=== PATIENT | male | born 1955 | race Caucasian/White ===

== ENCOUNTER 2023-06-20 16:17 | Inpatient (IN) | payer MEDICARE, OTHER, SELFPAY ==
--- NOTE | ~2023-06-20 | XR_ITS ---
EXAMINATION: Right knee and right foot x-rays CLINICAL INFORMATION: Right knee swelling and pain. Right toe infection. COMPARISON: None. TECHNIQUE: 4 views of the right knee. 2 views of the right foot FINDINGS: Right knee: There is normal. No fracture or dislocation. There is mild joint space narrowing at the femoral tibial joints. There are small osteophytes at the patellofemoral joint. There is a small joint effusion. There is atherosclerotic disease. Right foot: There are contractures of the toes. Bone alignment is otherwise normal. No fracture, dislocation or x-ray evidence of osteomyelitis. No abnormal air collection or soft tissue foreign body. There may be soft tissue swelling over the MTP joints. Soft tissue arterial calcification. XR/XR knee RT 3V IMPRESSION: Right knee: Degenerative changes. Atherosclerotic disease. Right foot: No x-ray evidence of osteomyelitis.
--- NOTE | ~2023-06-20 | CT_ITS ---
EXAMINATION: CT FOOT WITH CONTRAST, RIGHT CLINICAL INFORMATION: Question osteomyelitis. COMPARISON: Radiograph dated 06/20/2023 TECHNIQUE: Multidetector volumetric imaging was obtained through the right foot following intravenous administration of 85 mL Omnipaque 350. Multiplanar reformatted images in coronal and sagittal orientations were submitted. This CT examination was performed using dose optimization techniques as appropriate, variously including the following: *Automated exposure control *Adjustment of mA and/or kV according to patient size (this includes techniques or standardized protocols for targeted exams where dose is matched to indication/reason for exam; i.e. extremities or head) *Use of iterative reconstruction technique DLP: 187 mGy-cm FINDINGS: Soft tissue swelling is noted at the foot diffusely with generalized subcutaneous edema, most pronounced at the dorsal aspect of the midfoot and forefoot. No discrete peripherally enhancing fluid collections are identified to indicate abscess. No skin wounds are identified. No sites of focal erosion are osteopenia are identified to indicate a region of potential osteomyelitis. No fracture or malalignment. Mild talocrural osteoarthritis with small marginal osteophytes and areas of articular sclerosis. Midfoot joints are unremarkable. Minimal osteophyte is in the TMT joints. Calcific atherosclerosis is present in the arteries of the ankle and foot. There is fatty atrophy of the intrinsic foot musculature. No acute tendon abnormalities. CT/CT foot RT w IV con IMPRESSION: 1. Generalized soft tissue swelling and subcutaneous edema at the foot, most pronounced at the dorsal aspect of the midfoot and forefoot. No CT findings of osteomyelitis. No abscess. 2. Mild talocrural osteoarthritis. 3. Fatty atrophy of the intrinsic foot musculature.
--- NOTE | ~2023-06-20 | XR_ITS ---
EXAMINATION: Right knee and right foot x-rays CLINICAL INFORMATION: Right knee swelling and pain. Right toe infection. COMPARISON: None. TECHNIQUE: 4 views of the right knee. 2 views of the right foot FINDINGS: Right knee: There is normal. No fracture or dislocation. There is mild joint space narrowing at the femoral tibial joints. There are small osteophytes at the patellofemoral joint. There is a small joint effusion. There is atherosclerotic disease. Right foot: There are contractures of the toes. Bone alignment is otherwise normal. No fracture, dislocation or x-ray evidence of osteomyelitis. No abnormal air collection or soft tissue foreign body. There may be soft tissue swelling over the MTP joints. Soft tissue arterial calcification. XR/XR foot RT 2V IMPRESSION: Right knee: Degenerative changes. Atherosclerotic disease. Right foot: No x-ray evidence of osteomyelitis.
--- NOTE | ~2023-06-20 | US_ITS ---
EXAMINATION: Ultrasound arterial duplex lower extremity right CLINICAL INFORMATION: Nonhealing necrotic toe ulcer COMPARISON: None. TECHNIQUE: Doppler color and grayscale evaluation of the arteries of the right lower extremity with waveform spectral analysis FINDINGS: There is evidence of atherosclerotic disease and vessel wall calcification. Right common femoral artery peak systolic velocity 118 cm/s with flow reversal. Superficial femoral artery peak systolic velocities 100, 101 and 104 cm/s with diastolic flow reversal. Popliteal artery peak systolic velocity 81 cm/s with diastolic flow reversal. Posterior tibial artery peak systolic velocity 51 cm/s with diastolic flow reversal. US/US arterial duplex LE RT IMPRESSION: Mild atherosclerotic disease. No significant stenosis.
--- NOTE | ~2023-06-20 | CT_ITS ---
EXAMINATION: CT KNEE WITHOUT CONTRAST, RIGHT CLINICAL INFORMATION: Right knee pain. Evaluate for quadriceps tendon tear. COMPARISON: Right knee radiographs dated 06/20/2023. TECHNIQUE: Contiguous axial CT images of the right knee were obtained without contrast. Multiplanar reformats were provided and reviewed. This CT examination was performed using dose optimization techniques as appropriate, variously including the following: *Automated exposure control *Adjustment of mA and/or kV according to patient size (this includes techniques or standardized protocols for targeted exams where dose is matched to indication/reason for exam; i.e. extremities or head) *Use of iterative reconstruction technique DLP: 157 mGy-cm FINDINGS: No acute fracture or dislocation. Severe lateral as well as moderate to severe medial compartment joint space narrowing with subchondral sclerosis. Tricompartmental marginal osteophytes. No concerning lytic or blastic osseous lesion. No evidence of avascular necrosis. Small joint effusion and small Ramos's cyst. Prominent circumferential subcutaneous edema. No extra-articular organized fluid collection. No soft tissue mass. Atherosclerotic calcifications. Normal patellofemoral alignment. The quadriceps and patellar tendons are grossly intact, however, evaluation is limited on CT examination. The remaining visualized flexor and extensor tendons are intact. CT/CT knee RT wo IV con IMPRESSION: 1. No acute fracture or dislocation. 2. Tricompartmental osteoarthritis, most severe within the lateral compartment. 3. Small joint effusion and small Ramos's cyst. Prominent circumferential subcutaneous edema. 4. Grossly intact quadriceps and patellar tendons with normal patellofemoral alignment.
[2023-06-20 16:37] VITALS: BP 90/46; PULSE 80; RESP 18; TEMP 36.1; O2SAT 96; BMI 34.9
--- NOTE | 2023-06-20 16:37 | ED.SKABFB ---
HPI - Skin/Abscess/Foreign Bdy General Chief complaint: Wound/Laceration Stated complaint: rt foot toe infection/pcp sent pt to er Time Seen by Provider: 06/20/23 16:50 History of Present Illness HPI narrative: 68 y/o M patient; PMH T2DM, atrial fibrillation on Eliquis, CHF on Lasix, CAD; presents from PCP office with concern for right 5th toe infection. The patient states his symptoms started when he accidentally kicked a chair in the middle of the night while attempting to walk to the bathroom. He cut between his 4th and 5th digit on the right foot. The patient has been on oral antibiotics (patient states Amoxicillin and Bactrim) for the last 5 days. Despite the antibiotics he reports increased pain, redness, and swelling to the area. He denies: fever or chills, chest pain, SOB, cough/congestion, nausea/vomiting, abdominal pain. Related Data Home Medications Medication Instructions Recorded Confirmed acetaminophen 500 mg tablet 1,000 mg PO TID PRN Pain (Scale 06/20/23 06/20/23 Score 1-3) amoxicillin 875 mg-potassium 1 tab PO BID 06/20/23 06/20/23 clavulanate 125 mg tablet apixaban 5 mg tablet (Eliquis) 5 mg PO BID 06/20/23 06/20/23 aspirin 81 mg tablet,delayed 81 mg PO DAILY 06/20/23 06/20/23 release dapagliflozin propanediol 5 mg 5 mg PO DAILY 06/20/23 06/20/23 tablet (Farxiga) furosemide 40 mg tablet 40 mg PO DAILY 06/20/23 06/20/23 ibuprofen 600 mg tablet 600 mg PO Q6H PRN Pain (Scale 06/20/23 06/20/23 Score 1-3) insulin degludec 200 unit/mL (3 150 unit subcut DAILY 06/20/23 06/20/23 mL) subcutaneous pen (Tresiba FlexTouch U-200 insulin) losartan 50 mg tablet 50 mg PO DAILY 06/20/23 06/20/23 metoprolol succinate 50 mg 50 mg PO DAILY 06/20/23 06/20/23 tablet,extended release 24 hr rosuvastatin 10 mg tablet 10 mg PO DAILY 06/20/23 06/20/23 sulfamethoxazole 800 1 tab PO BID 06/20/23 06/20/23 mg-trimethoprim 160 mg tablet Allergies Allergy/AdvReac Type Severity Reaction Status Date / Time No Known Allergies Allergy Verified 06/20/23 16:43 Review of Systems Review of Systems: Yes all other systems are reviewed and are negative COUNT INCLUDES THE [facility] Past Medical History Attestation statement: The following information was validated with the patient. Social History Social History Smoked in Last 30 Days: No Use of substances other than those prescribed or required for medical reasons: No Advance Directives: No Advance Directives Information Provided: Yes Physical Exam Vital Signs: Vital Signs: Last Vital Signs Temp 97 F 06/20/23 16:37 Pulse 72 06/20/23 17:15 Resp 16 06/20/23 17:15 BP 121/69 06/20/23 17:15 Pulse Ox 99 06/20/23 17:15 O2 Del Method Room Air 06/20/23 17:15 BMI result Body Mass Index 34.9 Patient is afebrile, with low normal blood pressure, without tachycardia. Const: General: comfortable and no acute distress HEENT: Head: Yes atraumatic Eyes: Pupils: Equal, round and reactive pupils present EOM: EOMs intact bilaterally Neck: Neck: Yes full ROM, Yes supple and No tender Chest: Chest palpation & inspection: normal inspection of the chest and normal palpation of entire chest wall Resp: Effort & Inspection: normal respiratory effort, able to speak in complete sentences and no respiratory distress Auscultation: clear to auscultation bilaterally Cardio: Rate: regular rate Rhythm: regular rhythm Peripheral pulses: Peripheral pulses 2+ throughout GI: Palpation (GI): Soft to palpation, not firm, nontender, no guarding and not rigid Auscultation: normal bowel sounds Skin: Other: Right 4th and 5th digit surrounding erythema. Evidence of necrosis to 5th digit medial aspect. 2+ lower extremity right sided pitting edema. Neuro: Cranial nerves: Yes Equal, round and reactive pupils present Course Course Course Narrative: 7021-This is a rapid medical exam. Deferred additional HPI, ROS, PE to primary provider. 68 yo with history of DM, afib on eliquis, CHF on lasix, on baby ASA 81mg here with complaints of right 5th toe infection despite being on oral antibiotics x 5 days. Initially had an injury causing an abrasion to the 5th toe about 3 weeks ago. Now increasing pain, swelling and redness. No fevers/chills. Will need labs, x-ray VSS At this time infection suspected. Antibiotics ordered. Fluids ordered. Reevaluation(s) Reevaluation #1: Reviewed triage work up. Agree with plan for laboratory studies, XR imaging, IVF, and antibiotics (Zosyn and Vancomycin). Patient will require admission for IV antibiotics. XRs without evidence of free air. Plan: Admit to hospitalist for right 5th digit infection with cellulitis Condition: stable Medications Administered Generic Name Dose Route Start Last Admin Trade Name Freq PRN Reason Stop Dose Admin Vancomycin HCl 2,000 mg in 500 mls @ 250 mls/hr 06/20/23 18:00 06/20/23 18:31 Vancomycin/Ns IV 06/20/23 19:59 250 mls/hr ONCE ONE Administration Discontinued Medications Generic Name Dose Route Start Last Admin Trade Name Freq PRN Reason Stop Dose Admin Piperacillin Sod/Tazobactam 50 mls @ 100 mls/hr 06/20/23 16:45 06/20/23 18:29 Sod 3.375 gm/ Sodium Chloride IV 06/20/23 17:14 Infused ONCE ONE Infusion Sodium Chloride 1,000 mls @ 999 mls/hr 06/20/23 16:46 06/20/23 18:29 Ns IV 06/20/23 17:46 Infused .Q1H1M STA Infusion Medical Decision Making Lab Data 06/20/23 17:12 06/20/23 17:12 Labs: Lab Results 06/20/23 Range/Units 17:12 WBC 13.8 H (4.8-10.8) X10*3/uL RBC 4.44 L (4.60-5.80) X10*6/uL Hgb 11.0 L (14.0-18.0) g/dl Hct 35.1 L (42.0-52.0) % MCV 79.1 L (80.0-98.0) fL MCH 24.8 L (27.0-33.0) pg MCHC 31.3 (31.0-36.0) g/dl RDW 17.9 H (11.0-16.0) % Plt Count 337 (160-400) X10*3/uL MPV 8.9 L (9.4-12.4) fL Immature Gran % (Auto) 0.7 H (0.0-0.4) % Neut % (Auto) 84.2 H (45-73) % Lymph % (Auto) 10.7 L (20-40) % [place] % (Auto) 3.9 (2-11) % Eos % (Auto) 0.4 (0-4) % Baso % (Auto) 0.1 (0-2) % Lymph # (Auto) 1.5 (1.2-4.9) X10*3/uL [place] # (Auto) 0.5 (0.1-1.2) X10*3/uL Eos # (Auto) 0.1 (0.0-0.4) X10*3/uL Baso # (Auto) 0.0 (0.0-0.2) X10*3/uL Abs Immat Gran (auto) 0.09 H (0.00-0.03) X10*3/uL Absolute Neuts (auto) 11.6 H (2.0-8.3) x10*3/uL Absolute Nucleated RBC 0.000 (0.0-0.012) X10*3/uL Nucleated RBC % (auto) 0.0 (0.0-0.2) /100WBC ESR 85 H (0-15) MM/HR Sodium 130 L (135-145) mmol/L Potassium 5.1 (3.3-5.1) mmol/L Chloride 99 (96-108) mmol/L Carbon Dioxide 21 L (22-29) mmol/L Anion Gap 15 (12-20) BUN 44 H (9-16) mg/dL Creatinine 1.98 H (0.5-1.4) mg/dL Estim Creat Clear Calc 45.0 Estimated GFR 34 Random Glucose 203 H (60-115) mg/dL Lactic Acid 1.3 (0.5-2.0) mmol/L Calcium 8.5 (8.4-10.2) mg/dL Total Bilirubin 0.5 (0.0-1.0) mg/dL Direct Bilirubin 0.3 (0.0-0.5) mg/dL AST 15 (5-37) U/L ALT 12 (0-40) U/L Alkaline Phosphatase 78 (39-117) U/L C-Reactive Protein 12.38 H (< or = 0.50) mg/dL Total Protein 7.4 (6.5-8.0) g/dL Albumin 2.7 L (3.5-5.0) g/dL Radiology Impression Discussion of test interpretation with radiology: I have reviewed the radiologist's reading. Radiologist Impression: EXAMINATION: Ultrasound arterial duplex lower extremity right CLINICAL INFORMATION: Nonhealing necrotic toe ulcer COMPARISON: None. TECHNIQUE: Doppler color and grayscale evaluation of the arteries of the right lower extremity with waveform spectral analysis FINDINGS: There is evidence of atherosclerotic disease and vessel wall calcification. Right common femoral artery peak systolic velocity 118 cm/s with flow reversal. Superficial femoral artery peak systolic velocities 100, 101 and 104 cm/s with diastolic flow reversal. Popliteal artery peak systolic velocity 81 cm/s with diastolic flow reversal. Posterior tibial artery peak systolic velocity 51 cm/s with diastolic flow reversal. US/US arterial duplex LE RT IMPRESSION: Mild atherosclerotic disease. No significant stenosis. EXAMINATION: Right knee and right foot x-rays CLINICAL INFORMATION: Right knee swelling and pain. Right toe infection. COMPARISON: None. TECHNIQUE: 4 views of the right knee. 2 views of the right foot FINDINGS: Right knee: There is normal. No fracture or dislocation. There is mild joint space narrowing at the femoral tibial joints. There are small osteophytes at the patellofemoral joint. There is a small joint effusion. There is atherosclerotic disease. Right foot: There are contractures of the toes. Bone alignment is otherwise normal. No fracture, dislocation or x-ray evidence of osteomyelitis. No abnormal air collection or soft tissue foreign body. There may be soft tissue swelling over the MTP joints. Soft tissue arterial calcification. XR/XR foot RT 2V IMPRESSION: Right knee: Degenerative changes. Atherosclerotic disease. Right foot: No x-ray evidence of osteomyelitis. Discharge Plan Discharge Clinical Impression: Cellulitis of leg, right Patient Disposition: Admitted As Inpatient
[2023-06-20 17:15] VITALS: BP 121/69; PULSE 72; RESP 16; O2SAT 99
[2023-06-20 17:26] LABS: MANUAL DIFF FLAG NO
[2023-06-20] MEDS: 0.9 % Sodium Chloride 1,000 ML 999 ML IV (17:27)
[2023-06-20] MEDS: Piperacillin Sodium/Tazobactam 3.375 GM in 0.9 % Sodium Chloride 50 ML IV (17:27)
--- NOTE | 2023-06-20 17:27 | PC.NURSE ---
CHUTE DOWN TO LAB IS BROKEN, LABS TRANSPORTED ON FOOT BY THIS RN, RESULTING IN DELAY IN HANGING ABX.
[2023-06-20 17:30] LABS: Basophils Percent Auto 0.1 % (0-2); Eosinophils Absolute Auto 0.1 X10*3/uL (0.0-0.4); Eosinophils Percent Auto 0.4 % (0-4); Hematocrit 35.1 % (42.0-52.0); Imm Gran Abs Auto 0.09 X10*3/uL (0.00-0.03); Imm Gran Pct Auto 0.7 % (0.0-0.4); Lymphocytes Absolute Auto 1.5 X10*3/uL (1.2-4.9); Lymphocytes Percent Auto 10.7 % (20-40); Mean Corpuscular HGB Conc 31.3 g/dl (31.0-36.0); Mean Corpuscular Hemoglobin 24.8 pg (27.0-33.0); Mean Corpuscular Volume 79.1 fL (80.0-98.0); Mean Platelet Volume 8.9 fL (9.4-12.4); Monocytes Absolute Auto 0.5 X10*3/uL (0.1-1.2); Monocytes Percent Auto 3.9 % (2-11); Neutrophils Absolute Auto 11.6 x10*3/uL (2.0-8.3); Neutrophils Percent Auto 84.2 % (45-73); Platelet Count 337 X10*3/uL (160-400); Red Blood Count 4.44 X10*6/uL (4.60-5.80); Red Cell Distribution Width 17.9 % (11.0-16.0); White Blood Count 13.8 X10*3/uL (4.8-10.8)
[2023-06-20 17:40] LABS: Lactic Acid 1.3 mmol/L (0.5-2.0)
[2023-06-20 17:46] LABS: Alanine Aminotransferase 12 U/L (0-40); Albumin Level 2.7 g/dL (3.5-5.0); Alkaline Phosphatase 78 U/L (39-117); Anion Gap 15 (12-20); Aspartate Amino Transferase 15 U/L (5-37); Bilirubin Direct 0.3 mg/dL (0.0-0.5); Bilirubin Total 0.5 mg/dL (0.0-1.0); Blood Urea Nitrogen 44 mg/dL (9-16); C Reactive Protein 12.38 mg/dL (< or = 0.50); Calcium 8.5 mg/dL (8.4-10.2); Carbon Dioxide 21 mmol/L (22-29); Chloride 99 mmol/L (96-108); Estimated Glomerular Filt Rate 34; Glucose Random 203 mg/dL (60-115); Potassium 5.1 mmol/L (3.3-5.1); Sodium 130 mmol/L (135-145); Total Protein 7.4 g/dL (6.5-8.0)
--- NOTE | 2023-06-20 18:10 | PHA.MEDREC ---
Pharmacy Consult ? Medication Reconciliation Pharmacy has completed the medication reconciliation. Patient's had list of medications. Patient reports no longer taking Multag due gi upset, Trulicity or Mounajro. Patient confirm Tresiba dose is 150 units a day and reports sometimes he takes an extra dose if his BS are high. Beth Roman, Pharm
[2023-06-20 18:11] LABS: Erythrocyte Sedimentation Rate 85 MM/HR (0-15)
[2023-06-20] MEDS: vancomycin/NS 2,000 MG/500 ML PLAST..BAG 250 MG IV (18:31)
--- NOTE | 2023-06-20 19:29 | PC.NURSE ---
Assumed care of pt. Pt lying on stretcher, PA at bedside. Abx running in L AC IV, pt endorsing mild pain, PA sts will order meds. Plan to admit pt.
[2023-06-20 19:45] VITALS: BP 153/97; PULSE 99; RESP 17; TEMP 36.8; O2SAT 100
--- NOTE | 2023-06-20 20:44 | P.HPHOSP_ITS ---
History of Present Illness Date of Service: 06/20/23 Attending physician on admission: Je Craven Chief Complaint: toe infection 59-year-old male with history of uncontrolled insulin-dependent type 2 diabetes, hyperlipidemia, coronary artery disease s/p PCI 2017, paroxysmal atrial fibrillation s/p cardioversion and cardiac ablation anticoagulated with Eliquis, hypertension, obstructive sleep apnea, HFpEF presented to the ED earlier today the recommendation of his PCP for evaluation of a nonhealing ulcer of the right 5th toe. The patient reports that while ambulating about 17 days ago, he accidentally kicked the leg of a wood chair with the right small toe and sustained a laceration that did not require repair. However he did develop surrounding erythema and edema and he was prescribed Bactrim and Augmentin. However despite oral antibiotics, continue with ascending erythema, swelling, and pain. The toe took on a foul odor with black discoloration. He was seen again by his PCP today who recommended he come to the ED for further evaluation. His has been providing wound care and reports purulent drainage from the wound. He also states he has been having difficulty bearing weight on the right lower extremity. On arrival, patient iwth soft BP 90/46 with improvement to 153/97 following 1L IVF. Pt did develop mild tachycardia in the 90s. Vitals otherwise stable. There is a leukocytosis of 13.8. Microcytic anemia with H/H 11.0/35.1%, MCV 79.1. Creat 1.98, baseline 0.90 ([facility]). BUN 44. Sodium 130, potassium 5.1, electrolytes otherwise normal. CRP 12.38, ESR 85. X-ray of the right knee shows degenerative changes but no acute osseous abnormality. X-ray of the foot negative for any acute osteomyelitis. Arterial Doppler right lower extremity shows mild atherosclerotic disease but no significant stenosis. In the ED, has been treated with empiric Zosyn and vancomycin and has been given 1 L IV NS. Review of Systems 2 Review of Systems: General: No fevers, malaise, unintentional weight loss HEENT: No blurred vision, diplopia. No sore throat, nasal congestion, rhinorrhea, sinus pain, ear pain Cardiovascular: No chest pain, palpitations Respiratory: No shortness of breath, wheezing, cough GI: No abdominal pain, nausea, vomiting, diarrhea, constipation, melena, hematochezia : No dysuria, hematuria, increased urinary frequency, decreased urinary output MSK: No myalgia, back pain. +R knee pain Neuro: No headaches, weakness, paresthesias Skin: +R toe wound, +erythema/swelling RLE [facility] Medical History (Updated 06/20/23 @ 21:16 by MICK Appiah) (HFpEF) heart failure with preserved ejection fraction Obstructive sleep apnea Hyperlipidemia Type 2 diabetes mellitus Coronary artery disease Atrial fibrillation Hypertension Surgical History (Updated 06/20/23 @ 21:04 by MICK Appiah) S/P percutaneous transluminal coronary angioplasty Social History Smoked in Last 30 Days: No Use of substances other than those prescribed or required for medical reasons: No Advance Directives: No Advance Directives Information Provided: Yes Meds Allergies Allergy/AdvReac Type Severity Reaction Status Date / Time No Known Allergies Allergy Verified 06/20/23 16:43 Active Medications: Current Medications Acetaminophen (Acetaminophen 325 Mg Tablet) 650 mg PO Q6H PRN PRN Reason: Pain, Mild (Pain Scale 1-3) Apixaban (Apixaban 5 Mg Tablet) 5 mg PO BID AP Aspirin (Aspirin Enteric Coated 81 Mg Tablet.Dr) 81 mg PO DAILY AP Dextrose (Dextrose 50 % 25 Gm/50 Ml Syringe) 25 gm IVPUSH Q15M PRN; Protocol PRN Reason: per Hypoglycemia Standing Ord. Furosemide (Furosemide 40 Mg Tablet) 40 mg PO DAILY AP; Protocol Glucose (Glucose Gel 15 Gm Gel..Gram.) 15 gm PO Q15M PRN; Protocol PRN Reason: per Hypoglycemia Standing Ord. Sodium Chloride (Ns) 1,000 mls @ 100 mls/hr IVCONT .Q10H AP Piperacillin Sod/Tazobactam (Sod 3.375 gm/ Sodium Chloride) 50 mls @ 100 mls/hr IV Q6H AP Insulin Human Lispro (Insulin Lispro 100 Unit/Ml 3 Ml Vial) 0 unit SUBCUT QIDACHS AP; Protocol Metoprolol Succinate (Metoprolol Succinate Er 50 Mg Tab.Er.24h) 50 mg PO DAILY AP; Protocol Morphine Sulfate (Morphine Sulfate 4 Mg/Ml Cartridge) 2 mg IVPUSH Q4H PRN; Protocol PRN Reason: Pain, Severe (Pain Scale 7-10) Non-Formulary Medication (Insulin Degludec [Tresiba Flextouch U-200]) 105 unit SUBCUT DAILY [facility] Non-Formulary Medication (Rosuvastatin) 10 mg PO DAILY [facility] Ondansetron HCl (Ondansetron Hcl 4 Mg/2 Ml Vial) 4 mg IVPUSH Q8H PRN PRN Reason: Nausea and Vomiting Oxycodone HCl (Oxycodone Hcl Immed Release 5 Mg Tablet) 5 mg PO Q6H PRN PRN Reason: Pain, Moderate(Pain Scale 4-6) Pharmacy Consult (Consult Rx Vancomycin Dosing) 1 each MISCELLANE DAILY PRN PRN Reason: Consult order Senna (Sennosides 8.6 Mg Tablet) 17.2 mg PO BEDTIME PRN PRN Reason: Constipation Sodium Chloride (0.9 % Sodium Chloride Flush 3 Ml Syringe) 3 ml IVFLUSH QSHIFT [facility] Home Medications Medication Instructions Recorded Confirmed Last Taken Type acetaminophen 500 mg tablet 1,000 mg PO TID PRN Pain (Scale 06/20/23 06/20/23 Unknown History Score 1-3) amoxicillin 875 mg-potassium 1 tab PO BID 06/20/23 06/20/23 06/20/23 History clavulanate 125 mg tablet apixaban 5 mg tablet (Eliquis) 5 mg PO BID 06/20/23 06/20/23 06/20/23 History aspirin 81 mg tablet,delayed 81 mg PO DAILY 06/20/23 06/20/23 06/20/23 History release dapagliflozin propanediol 5 mg 5 mg PO DAILY 06/20/23 06/20/23 06/20/23 History tablet (Farxiga) furosemide 40 mg tablet 40 mg PO DAILY 06/20/23 06/20/23 06/20/23 History ibuprofen 600 mg tablet 600 mg PO Q6H PRN Pain (Scale 06/20/23 06/20/23 06/20/23 History Score 1-3) insulin degludec 200 unit/mL (3 150 unit subcut DAILY 06/20/23 06/20/23 06/20/23 History mL) subcutaneous pen (Tresiba FlexTouch U-200 insulin) losartan 50 mg tablet 50 mg PO DAILY 06/20/23 06/20/23 06/20/23 History metoprolol succinate 50 mg 50 mg PO DAILY 06/20/23 06/20/23 06/20/23 History tablet,extended release 24 hr rosuvastatin 10 mg tablet 10 mg PO DAILY 06/20/23 06/20/23 06/20/23 History sulfamethoxazole 800 1 tab PO BID 06/20/23 06/20/23 06/20/23 History mg-trimethoprim 160 mg tablet Physical Exam 2 Vital Signs and Narrative: Vital Signs: Last Vital Signs Temp 98.3 F 06/20/23 19:45 Pulse 99 06/20/23 19:45 Resp 17 06/20/23 19:45 BP 153/97 H 06/20/23 19:45 Pulse Ox 100 06/20/23 19:45 O2 Del Method Room Air 06/20/23 19:45 BMI result Body Mass Index 34.9 Constitutional - Awake and Alert, No apparent distress Eyes - PERRLA, EOMI Cardiovascular - S1S2, RRR Respiratory - Normal lung expansion, Normal respiratory effort, No respiratory distress, CTA bilaterally Gastrointestinal - NT / ND; +BS; No rebound or guarding Extremities - no calf tenderness bilaterally, no swelling Skin - Warm/Dry. Shallow ulceration dorsal aspect R 5th toe with foul smelling eschar with significant surrounding erthema and patchy erythema extending to the knee with associated 3+ pitting edema Neurological - Alert & oriented x3 Psychological - Appropriate affect Results Labs 06/20/23 17:12 06/20/23 17:12 Labs: Laboratory Results - last 24 hr 06/20/23 17:12 MCV 79.1 L MCH 24.8 L MCHC 31.3 RDW 17.9 H Plt Count 337 MPV 8.9 L Immature Gran % (Auto) 0.7 H Neut % (Auto) 84.2 H Lymph % (Auto) 10.7 L [place] % (Auto) 3.9 Eos % (Auto) 0.4 Baso % (Auto) 0.1 Lymph # (Auto) 1.5 [place] # (Auto) 0.5 Eos # (Auto) 0.1 Baso # (Auto) 0.0 Abs Immat Gran (auto) 0.09 H Absolute Neuts (auto) 11.6 H Absolute Nucleated RBC 0.000 Nucleated RBC % (auto) 0.0 ESR 85 H Anion Gap 15 Estim Creat Clear Calc 45.0 Estimated GFR 34 Random Glucose 203 H Lactic Acid 1.3 Calcium 8.5 Total Bilirubin 0.5 Direct Bilirubin 0.3 AST 15 ALT 12 Alkaline Phosphatase 78 C-Reactive Protein 12.38 H Total Protein 7.4 Albumin 2.7 L Imaging Radiologist's Impressions: Impressions Duplex Scan Lower Extremity Artery 06/20/23 17:55 IMPRESSION: Mild atherosclerotic disease. No significant stenosis. Foot X-Ray 06/20/23 18:30 IMPRESSION: Right knee: Degenerative changes. Atherosclerotic disease. Right foot: No x-ray evidence of osteomyelitis. Knee X-Ray 06/20/23 18:30 IMPRESSION: Right knee: Degenerative changes. Atherosclerotic disease. Right foot: No x-ray evidence of osteomyelitis. Assessment and Plan (1) Cellulitis of leg, right: Status: Acute (2) Severe sepsis: Status: Acute (3) Acute kidney injury: Status: Acute (4) Hyponatremia: Status: Acute Plan 59-year-old male with history of uncontrolled insulin-dependent type 2 diabetes, hyperlipidemia, coronary artery disease s/p PCI 2018, paroxysmal atrial fibrillation s/p cardioversion and cardiac ablation anticoagulated with Eliquis, hypertension, obstructive sleep apnea, HFpEF admitted for further management of acute cellulitis RLE with severe sepsis #Acute cellulitis RLE with severe sepsis -leukocytosis 13.8, tachycardic. No lactic acidosis. GINA. No hypotension -in uncontrolled type 2 diabetic with hemoglobin A1c pending -IV vancomycin and Zosyn -x-ray negative for osteomyelitis. ESR 85, CRP 12. MRI right foot w/wo contrast ordered -Pain management prn -general surgery consult -wound care consult -follow CBC, cultures # acute kidney injury -likely related to above -urine studies pending -creatinine 1.8, baseline 0.90 ([facility]) -received 1 L IV NS in ED, continue IV NS at 100 mL/hr -avoid nephrotoxins -strict I&O -follow renal function and electrolyte levels #Acute hyponatremia -possibly r/t bactrim use -IV NS -follow lytes #Acute microcytic anemia -H/H 11.0/35.1%, baseline 13.8/44.1% -denies bleeding, likely in setting of acute infection -iron studies and stool occult blood pending -continue eliquis for now # uncontrolled insulin-dependent type 2 diabetes with hyperglycemia -hemoglobin A1c pending -POC glucose, diabetic diet -dose adjusted basal insulin -Humalog on sliding scale -hold oral antihyperglycemics # hypertension -blood pressure reasonably controlled -hold losartan in setting of GINA. Continue metoprolol, furosemide # CAD/HLD -continue Eliquis, statin, beta-gabrielle # paroxysmal atrial fibrillation-rate controlled on admission -Eliquis for anticoagulation -metoprolol for rate control # heart failure preserved ejection fraction -no acute exacerbation -continue oral diuretics DVT prophylaxis-Eliquis Full code Patient requires inpatient stay at least 2 midnights for management of acute cellulitis right lower extremity and uncontrolled diabetic with concern for osteomyelitis and possible necrosis requiring IV antibiotics, expert consultation, and may require long-term IV antibiotics pending additional imaging studies. Quality Stroke Does the patient have a stroke diagnosis?: No VTE Prior VTE?: No VTE Risk Level:: Medical - moderate - high VTE Device Contraindication: Treatment Not Indicated VTE Drug Contraindication: N/A - Med Ordered
[2023-06-20 21:24] LABS: Iron 19 mcg/dL (45-160); Percent Iron Saturation 11 % (15-50); Total Iron Binding Capacity 168 mcg/dL (228-428); Unsaturated Iron Binding 149 ug/dL
[2023-06-20 21:35] LABS: Glucose, Whole Blood 77 mg/dL (60-115)
[2023-06-20 21:37] LABS: Ferritin 956 ng/mL (20-250)
[2023-06-20] MEDS: Acetaminophen 325 MG TABLET 975 MG PO (21:39)
[2023-06-20] MEDS: Morphine Sulfate 4 MG/ML CARTRIDGE 2 MG IVPUSH (21:40)
[2023-06-20] MEDS: Apixaban 5 MG TABLET PO (21:40)
[2023-06-20] MEDS: 0.9 % Sodium Chloride 1,000 ML 100 ML IVCONT (21:45)
--- NOTE | 2023-06-20 21:52 | PC.NURSE ---
pt reports 10/10 R knee pain. Pt medicated per JUL.
--- OUTSIDE RECORDS SUMMARY | 2023-06-20 23:18 | XMS_ITS | Continuity of Care Document ---
Author Name Unknown Organization [facility] ter Address [address] [place] [id number] Care Team Providers Care Phlebotomist Lab Assistant Name Role Phone Macario JAIMES, Chemo Lizarraga Primary Care Physician Encounter [facility] ACCT R [id number] Date(s): 12/30/21 - 12/31/[address] [address]- Discharge Disposition: A-D/C Home Attending Physician: Bashir Calles MD Admitting Physician: Bashir Calles MD Referring Physician: Bashir Calles MD Allergies, Adverse Reactions, Alerts Substance Reaction Severity Status Lactose Active Immunizations Given and Recorded Vaccine Date Status Refusal Reason pneumococcal 23-valent vaccine 05/02/18 Given Medications apixaban 5 mg oral tablet 1 tablet = 5 mg, By Mouth, 2 times a day, # 60 tablet, 11 Refills, Maintenance, 05/02/18 11:49:58 EST, Tablet Start Date: 05/02/18 Stop Date: 04/27/19 Status: Ordered aspirin 81 mg oral capsule 1 capsule = 81 mg, By Mouth, Every 4 hours, 0 Refills, Maintenance, 12/31/21 11:23:00 EDT, Partial fill upon patient request if the prescription is for a schedule II opioid drug. Start Date: 12/31/21 Status: Ordered dulaglutide 1.5 mg/0.5 mL subcutaneous solution 0.5 mL = 1.5 mg, Subcutaneous Injection, Every week, 0 Refills, Maintenance, 04/28/18 14:03:18 EST,Solution Start Date: 04/28/18 Status: Ordered furosemide 40 mg oral tablet 40 mg, 1, tablet, By Mouth, 2 times a day, # 30 tablet, Refills 0, Maintenance, 12/31/21 11:23:00 EDT, Partial fill upon patient request if the prescription is for a schedule II opioid drug. Start Date: 12/31/21 Status: Ordered losartan 50 mg oral tablet 50 mg, 1, tablet, By Mouth, Daily, # 30 tablet, Refills 0, Maintenance, 12/31/21 11:22:00 EDT, Partial fill upon patient request if the prescription is for a schedule II opioid drug. Start Date: 12/31/21 Status: Ordered nitroglycerin 0.4 mg sublingual tablet 1 tablet = 0.4 mg, Sublingual, Every 5 minutes, PRN for chest pain, # 25 tablet, 0 Refills, Maintenance, 05/02/18 15:25:29 EST, Tablet Start Date: 05/02/18 Stop Date: 06/01/18 Status: Ordered pantoprazole 40 mg oral delayed release tablet = 40 mg, By Mouth, Daily at bedtime, # 30 capsule, 0 Refills, Maintenance, 12/30/21 13:29:00 EDT, EC Tablet, 180, cm, 12/30/21 7:28:00 EDT, Height, 128, kg, 12/30/21 7:21:00 EDT, Dry Weight Start Date: 12/30/21 Status: Ordered rosuvastatin 10 mg oral capsule 1 capsule = 10 mg, By Mouth, Daily, # 30 capsule, 0 Refills, Maintenance, 12/31/21 11:23:00 EDT, Capsule, Partial fill upon patient request if the prescription is for a schedule II opioid drug. Start Date: 12/31/21 Status: Ordered Toprol XL 25 mg oral tablet, extended release 25 mg, 1, tablet, By Mouth, Daily, # 90 tablet, Refills 3, Tot. Refills 3, Maintenance, 12/30/21 13:34:00 EDT, Route to Pharmacy Electronically, [facility]/pharmacy #[id number], Partial fill upon patient request if the prescription is for a schedule II opioid drug... Start Date: 12/30/21 Status: Ordered Toradol Inj 15 mg, Injection, IV Push Slowly, 12/31/21 2:00:00 EDT, Stop date 12/31/21 2:00:00 EDT Start Date: 12/31/21 Stop Date: 12/31/21 Status: Completed Toradol Inj 15 mg, Injection, IV Push Slowly, 12/31/21 9:00:00 EDT, Stop date 12/31/21 9:00:00 EDT Start Date: 12/31/21 Stop Date: 12/31/21 Status: Completed Tresiba FlexTouch 200 units/mL subcutaneous solution = 200 units, Subcutaneous Injection, Daily, rotate injection sites, # 9 mL, 0 Refills, Maintenance,04/28/18 14:02:52 EST, Solution Start Date: 04/28/18 Status: Ordered Problem List Condition Effective Dates Status Health Status Inform ant CAD in [place] artery(Confirmed) Active Vital Signs Most recent to oldest [Reference Range]: 1 2 3 Height 180 cm (12/31/21 8:09 AM) 180 cm (12/31/21 2:43 AM) 180 cm (12/30/21 7:49 PM) Weight 128 kg (12/30/21 7:28 AM) 128 kg (12/30/21 7:21 AM) Oxygen Saturation [94-100 %] 97 % (12/31/21 8:09 AM) 100 % (12/31/21 2:43 AM) 100 % (12/30/21 7:49 PM) Pulse Rate [55-90 bpm] 79 bpm (12/31/21 8:09 AM) 81 bpm (12/31/21 2:43 AM) 75 bpm (12/30/21 7:49 PM) Blood Pressure [90-138/55-84 mm Hg] 129/83mm Hg (12/31/21 8:09 AM) 125/75mm Hg (12/31/21 2:43 AM) 111/96mm Hg (12/30/21 7:49 PM) Respiratory Rate [16-30 br/min] 18 br/min (12/31/21 8:53 AM) 18 br/min (12/31/21 8:09 AM) 18 br/min (12/31/21 3:34 AM) Temperature [96.8-100.4 DegF] 97.4 DegF (12/31/21 8:09 AM) 98 DegF (12/31/21 2:43 AM) 96.8 DegF (12/30/21 7:49 PM) Liters per Minute 2 L/min (12/30/21 7:49 PM) 2 L/min (12/30/21 3:30 PM) Mode of Delivery (Oxygen) Room air (12/31/21 8:09 AM) Room air (12/31/21 2:43 AM) Nasal cannula (12/30/21 7:49 PM) Blood pressure sites Arm, left (12/31/21 8:09 AM) Arm, right (12/31/21 2:43 AM) Arm, right (12/30/21 7:49 PM) Temperature Route Temporal (12/31/21 8:09 AM) Temporal (12/31/21 2:43 AM) Temporal (12/30/21 7:49 PM) Dry Weight 128 kg (12/30/21 7:21 AM) Social History Social History Type Response Smoking Status Former smoker, quit more than 30 days ago entered on: 04/28/18 Sex
[2023-06-20 23:44] VITALS: BP 132/58; PULSE 78; RESP 16; TEMP 36.8; O2SAT 99
[2023-06-21] MEDS: Piperacillin Sodium/Tazobactam 3.375 GM in 0.9 % Sodium Chloride 50 ML IV ×4 (00:20→20:12)
[2023-06-21] MEDS: oxyCODONE HCl Immed Release 5 MG TABLET PO ×2 (00:21→15:19)
[2023-06-21] MEDS: 0.9 % Sodium Chloride Flush 3 ML SYRINGE IVFLUSH ×3 (01:01→20:12)
[2023-06-21 01:04] VITALS: BP 154/67; PULSE 76; RESP 16; TEMP 36.3; O2SAT 96
[2023-06-21 01:05] VITALS: BMI 35.5
[2023-06-21] MEDS: Morphine Sulfate 4 MG/ML CARTRIDGE 2 MG IVPUSH (01:42)
[2023-06-21 03:31] VITALS: BP 130/69; PULSE 81; RESP 18; TEMP 36.1; O2SAT 99
[2023-06-21] MEDS: HYDROmorphone HCl 1 MG/ML SYRINGE IVPUSH ×4 (03:39→20:02)
[2023-06-21 06:12] LABS: MANUAL DIFF FLAG NO
[2023-06-21 06:33] LABS: Basophils Percent Auto 0.1 % (0-2); Eosinophils Absolute Auto 0.1 X10*3/uL (0.0-0.4); Eosinophils Percent Auto 0.6 % (0-4); Hematocrit 31.3 % (42.0-52.0); Hemoglobin 9.8 g/dl (14.0-18.0); Imm Gran Abs Auto 0.04 X10*3/uL (0.00-0.03); Imm Gran Pct Auto 0.4 % (0.0-0.4); Lymphocytes Absolute Auto 1.5 X10*3/uL (1.2-4.9); Lymphocytes Percent Auto 13.1 % (20-40); Mean Corpuscular HGB Conc 31.3 g/dl (31.0-36.0); Mean Corpuscular Hemoglobin 25.7 pg (27.0-33.0); Mean Corpuscular Volume 82.2 fL (80.0-98.0); Monocytes Absolute Auto 0.5 X10*3/uL (0.1-1.2); Monocytes Percent Auto 4.2 % (2-11); Neutrophils Absolute Auto 9.2 x10*3/uL (2.0-8.3); Neutrophils Percent Auto 81.6 % (45-73); Platelet Count 306 X10*3/uL (160-400); Red Blood Count 3.81 X10*6/uL (4.60-5.80); Red Cell Distribution Width 17.9 % (11.0-16.0); White Blood Count 11.3 X10*3/uL (4.8-10.8)
[2023-06-21 06:34] LABS: Anion Gap 12 (12-20); Blood Urea Nitrogen 29 mg/dL (9-16); Calcium 8.4 mg/dL (8.4-10.2); Carbon Dioxide 23 mmol/L (22-29); Chloride 105 mmol/L (96-108); Creatinine Clr Calc Pharmacy 70.4; Estimated Glomerular Filt Rate 56; Glucose Random 63 mg/dL (60-115); Potassium 4.9 mmol/L (3.3-5.1); Sodium 135 mmol/L (135-145)
--- NOTE | 2023-06-21 07:11 | HO.SKINPHOTO ---
Location: RT 5th TOE Category: Stage: Length: Width: Depth: cm Location: Category: Stage: Length: Width: Depth: cm Location: Category: Stage: Length: Width: Depth: cm Location: Category: Stage: Length: Width: Depth: cm Location: Category: Stage: Length: Width: Depth: cm Location: Category: Stage: Length: Width: Depth: cm
[2023-06-21 07:18] LABS: Estimated Average Glucose 160 mg/dL; Hemoglobin A1c % 7.2 % (<6.0)
--- NOTE | 2023-06-21 07:18 | PC.NURSE ---
Pt arrived from ED to s3 med-surg 01:00 on 06/21. A&Ox4. VSS. LSCTA on RA. No distress noted. Diabetic foot wound to RT 5th toe. See photos in chart. NS infusing as ordered. Medicated for pain per MAR with +effect. See shift assessment and EMAR for full details. Handoff report given 06:45.?
[2023-06-21 07:23] VITALS: BP 149/67; PULSE 86; RESP 20; TEMP 36.2; O2SAT 98
[2023-06-21 07:37] LABS: Glucose, Whole Blood 60 mg/dL (60-115)
[2023-06-21] MEDS: Atorvastatin Calcium 40 MG TABLET PO (08:41)
[2023-06-21] MEDS: Insulin Glargine,Hum.rec.anlog 100 UNIT/ML 10 ML VIAL 73 UNIT SUBCUT (08:41)
[2023-06-21] MEDS: Apixaban 5 MG TABLET PO (08:42)
[2023-06-21] MEDS: Aspirin Enteric Coated 81 MG TABLET.DR PO (08:42)
[2023-06-21] MEDS: Furosemide 40 MG TABLET PO (08:42)
[2023-06-21] MEDS: Metoprolol Succinate ER 50 MG TAB.ER.24H PO (08:42)
[2023-06-21] MEDS: 0.9 % Sodium Chloride 1,000 ML 100 ML IVCONT (08:44)
--- NOTE | 2023-06-21 10:12 | PM.CNGS ---
History of Present Illness Consult details Consult date: 06/21/23 Narrative: 68-year-old male patient presenting for evaluation of a right 5th toe infection. He reports a past medical history of diabetes type 2, atrial fibrillation on Eliquis, CHF and coronary artery disease. He apparently fell approximately 2 weeks ago in the bathroom while walking at night and struck his right foot between the 4th and 5th toe. Immediately had severe pain in both the right knee and foot. He was subsequently placed on oral antibiotics for approximately 5 days without significant improvement of this pain and swelling. He subsequently presented to the emergency department for further evaluation. X-rays of the foot and knee revealed no evidence of fracture or osteomyelitis. Admitted to the hospitalist service for IV antibiotics. Surgical consultation was requested regarding management of the 5th toe. Review of Systems Review of Systems: Yes all other systems are reviewed and are negative Constitutional: Constitutional: Denies chills, Denies fever(s), Denies headache(s), Denies poor appetite and Denies weakness ENT: Denies headache(s) Cardiovascular: Cardiovascular: Denies chest pain, Denies irregular heart rhythm, Denies palpitations and Denies dyspnea Respiratory: Respiratory: Denies cough, Denies excessive phlegm production and Denies dyspnea Gastrointestinal: Gastrointestinal: Denies abdominal pain, Denies bloating, Denies change in bowel habits, Denies constipation, Denies heartburn, Denies diarrhea, Denies nausea and Denies vomiting Genitourinary: Genitourinary: Denies difficulty urinating and Denies urinary frequency Musculoskeletal: Musculoskeletal: Reports as per HPI, Denies back pain, Reports arthralgias, Reports joint swelling, Denies muscle weakness and Denies numbness Integumentary/Breasts: Skin/Breast: Denies changing lesions and Denies unusual bruising Neurologic: Denies headache(s), Denies numbness, Denies paresthesias and Denies weakness Psychiatric: Psychiatric: Denies anxiety and Denies depression Endocrine: Endocrine: Denies palpitations Hematologic/Lymphatic: Hematologic/Lymphatic: Denies lymphadenopathy PMFSH Past Medical History Medical History (HFpEF) heart failure with preserved ejection fraction Obstructive sleep apnea Hyperlipidemia Type 2 diabetes mellitus Coronary artery disease Atrial fibrillation Hypertension Surgical History Surgical History S/P percutaneous transluminal coronary angioplasty Social History Social History Household Members: Spouse Housing: House Do you presently have visiting nurse or other home services: No Patient Tobacco Use Status: Former Tobacco user Quit Date: 2001 Smoked in Last 30 Days: No e-Cigarette/Vaping Use: Never Used Second Hand Smoke Exposure: No Use of substances other than those prescribed or required for medical reasons: No Have you been hit, kicked, punched, or otherwise hurt by someone within the past year? If so, by whom?: No Do you feel safe in your current relationship?: Yes Is there a partner from a previous relationship who is making you feel unsafe now?: No Are you made to feel afraid or neglected: No Confucianism Healthcare Practices: Taoism Advance Directives: No Advance Directives Information Provided: Yes Do you have thoughts of harming others: None Do you have a plan to hurt others: No Plan Recently lost weight without trying: No Eating poorly because of decreased appetite: No Nutrition Risks: Diabetes new onset/Uncontrolled Meds Allergies Allergy/AdvReac Type Severity Reaction Status Date / Time No Known Allergies Allergy Verified 06/20/23 16:43 Active Medications: Current Medications Acetaminophen (Acetaminophen 325 Mg Tablet) 650 mg PO Q6H PRN PRN Reason: Pain, Mild (Pain Scale 1-3) Apixaban (Apixaban 5 Mg Tablet) 5 mg PO BID [facility] Last Admin: 06/21/23 08:42 Dose: 5 mg Aspirin (Aspirin Enteric Coated 81 Mg Tablet.) 81 mg PO DAILY [facility] Last Admin: 06/21/23 08:42 Dose: 81 mg Atorvastatin Calcium (Atorvastatin Calcium 40 Mg Tablet) 40 mg PO DAILY [facility] Last Admin: 06/21/23 08:41 Dose: 40 mg Dextrose (Dextrose 50 % 25 Gm/50 Ml Syringe) 25 gm IVPUSH Q15M PRN; Protocol PRN Reason: per Hypoglycemia Standing Ord. Furosemide (Furosemide 40 Mg Tablet) 40 mg PO DAILY [facility]; Protocol Last Admin: 06/21/23 08:42 Dose: 40 mg Glucose (Glucose Gel 15 Gm Gel..Gram.) 15 gm PO Q15M PRN; Protocol PRN Reason: per Hypoglycemia Standing Ord. Hydromorphone HCl (Hydromorphone Hcl 1 Mg/Ml Syringe) 1 mg IVPUSH Q4H PRN; Protocol PRN Reason: Pain, Severe (Pain Scale 7-10) Last Admin: 06/21/23 08:38 Dose: 1 mg Sodium Chloride (Ns) 1,000 mls @ 100 mls/hr IVCONT .Q10H [facility] Last Admin: 06/21/23 08:44 Dose: 100 mls/hr Piperacillin Sod/Tazobactam (Sod 3.375 gm/ Sodium Chloride) 50 mls @ 100 mls/hr IV Q6H [facility] Last Infusion: 06/21/23 05:08 Dose: Infused Vancomycin HCl 1,250 mg/ (Sodium Chloride) 250 mls @ 166.667 mls/hr IV Q24H [facility] Insulin Glargine (Insulin Glargine,Hum.Rec.Anlog 100 Unit/Ml 10 Ml Vial) 73 unit SUBCUT DAILY [facility] Last Admin: 06/21/23 08:41 Dose: 73 unit Insulin Human Lispro (Insulin Lispro 100 Unit/Ml 3 Ml Vial) 0 unit SUBCUT QIDACHS [facility]; Protocol Last Admin: 06/21/23 07:44 Dose: Not Given Metoprolol Succinate (Metoprolol Succinate Er 50 Mg Tab.Er.24h) 50 mg PO DAILY [facility]; Protocol Last Admin: 06/21/23 08:42 Dose: 50 mg Ondansetron HCl (Ondansetron Hcl 4 Mg/2 Ml Vial) 4 mg IVPUSH Q8H PRN PRN Reason: Nausea and Vomiting Oxycodone HCl (Oxycodone Hcl Immed Release 5 Mg Tablet) 5 mg PO Q6H PRN PRN Reason: Pain, Moderate(Pain Scale 4-6) Last Admin: 06/21/23 00:21 Dose: 5 mg Pharmacy Consult (Consult Rx Vancomycin Dosing) 1 each MISCELLANE DAILY PRN PRN Reason: Consult order Senna (Sennosides 8.6 Mg Tablet) 17.2 mg PO BEDTIME PRN PRN Reason: Constipation Sodium Chloride (0.9 % Sodium Chloride Flush 3 Ml Syringe) 3 ml IVFLUSH QSHIFT [facility] Last Admin: 06/21/23 08:44 Dose: 3 ml Home Medications Medication Instructions Recorded Confirmed Last Taken Type acetaminophen 500 mg tablet 1,000 mg PO TID PRN Pain (Scale 06/20/23 06/20/23 Unknown History Score 1-3) amoxicillin 875 mg-potassium 1 tab PO BID 06/20/23 06/20/23 06/20/23 History clavulanate 125 mg tablet apixaban 5 mg tablet (Eliquis) 5 mg PO BID 06/20/23 06/20/23 06/20/23 History aspirin 81 mg tablet,delayed 81 mg PO DAILY 06/20/23 06/20/23 06/20/23 History release dapagliflozin propanediol 5 mg 5 mg PO DAILY 06/20/23 06/20/23 06/20/23 History tablet (Farxiga) furosemide 40 mg tablet 40 mg PO DAILY 06/20/23 06/20/23 06/20/23 History ibuprofen 600 mg tablet 600 mg PO Q6H PRN Pain (Scale 06/20/23 06/20/23 06/20/23 History Score 1-3) insulin degludec 200 unit/mL (3 150 unit subcut DAILY 06/20/23 06/20/23 06/20/23 History mL) subcutaneous pen (Tresiba FlexTouch U-200 insulin) losartan 50 mg tablet 50 mg PO DAILY 06/20/23 06/20/23 06/20/23 History metoprolol succinate 50 mg 50 mg PO DAILY 06/20/23 06/20/23 06/20/23 History tablet,extended release 24 hr rosuvastatin 10 mg tablet 10 mg PO DAILY 06/20/23 06/20/23 06/20/23 History sulfamethoxazole 800 1 tab PO BID 06/20/23 06/20/23 06/20/23 History mg-trimethoprim 160 mg tablet Physical Exam Vital Signs: Vital Signs: Last Vital Signs Temp 97.2 F 06/21/23 07:23 Pulse 86 06/21/23 07:23 Resp 20 06/21/23 07:23 BP 149/67 H 06/21/23 07:23 Pulse Ox 98 06/21/23 07:23 O2 Del Method Room Air 06/21/23 07:23 BMI result Body Mass Index 35.5 Const: General: cooperative and no acute distress Nutritional Appearance: well nourished Orientation/consciousness: patient oriented x3 Limitations: no limitations HEENT: Head: Yes normocephalic and Yes atraumatic Ears: hearing grossly normal bilaterally Resp: Effort & Inspection: normal respiratory effort, no audible wheezes, no cough and no respiratory distress Cardio: Jugular venous distension: no JVD GI: Inspection: Yes normal to inspection Skin: Other: Warm, dry, no rash Neuro: General: patient oriented x3 Extrem: Other: Area of cellulitis involving the 4th and 5th toe extending up the dorsum of the right foot. There is an area of necrotic changes in the webspace of the 5th toe. No open wound is identified. Site is exquisitely tender but no evidence of an underlying abscess. Tenderness and swelling also noted in the right knee. General: Yes no clubbing, cyanosis or edema Ankle/foot/toe images: 1. Site of trauma right 5th toe. Results Labs 06/21/23 05:30 06/21/23 05:30 Labs: Abnormal lab results 06/20/23 06/21/23 Range/Units 17:12 05:30 WBC 13.8 H 11.3 H (4.8-10.8) X10*3/uL RBC 4.44 L 3.81 L (4.60-5.80) X10*6/uL Hgb 11.0 L 9.8 L (14.0-18.0) g/dl Hct 35.1 L 31.3 L (42.0-52.0) % MCV 79.1 L (80.0-98.0) fL MCH 24.8 L 25.7 L (27.0-33.0) pg RDW 17.9 H 17.9 H (11.0-16.0) % MPV 8.9 L 9.0 L (9.4-12.4) fL Immature Gran % (Auto) 0.7 H (0.0-0.4) % Neut % (Auto) 84.2 H 81.6 H (45-73) % Lymph % (Auto) 10.7 L 13.1 L (20-40) % Abs Immat Gran (auto) 0.09 H 0.04 H (0.00-0.03) X10*3/uL Absolute Neuts (auto) 11.6 H 9.2 H (2.0-8.3) x10*3/uL ESR 85 H (0-15) MM/HR Sodium 130 L (135-145) mmol/L Carbon Dioxide 21 L (22-29) mmol/L BUN 44 H 29 H (9-16) mg/dL Creatinine 1.98 H (0.5-1.4) mg/dL Random Glucose 203 H (60-115) mg/dL Hemoglobin A1c % 7.2 H (<6.0) % Iron 19 L (45-160) mcg/dL TIBC 168 L (228-428) mcg/dL % Saturation 11 L (15-50) % Ferritin 956 H (20-250) ng/mL C-Reactive Protein 12.38 H (< or = 0.50) mg/dL Albumin 2.7 L (3.5-5.0) g/dL Short CBC 06/20/23 06/21/23 Range/Units 17:12 05:30 WBC 13.8 H 11.3 H (4.8-10.8) X10*3/uL Hgb 11.0 L 9.8 L (14.0-18.0) g/dl Hct 35.1 L 31.3 L (42.0-52.0) % Plt Count 337 306 (160-400) X10*3/uL BMP 06/20/23 06/21/23 17:12 05:30 Sodium 130 L 135 Potassium 5.1 4.9 Chloride 99 105 Carbon Dioxide 21 L 23 BUN 44 H 29 H Creatinine 1.98 H 1.28 Calcium 8.5 8.4 Liver Function 06/20/23 Range/Units 17:12 Total Bilirubin 0.5 (0.0-1.0) mg/dL Direct Bilirubin 0.3 (0.0-0.5) mg/dL AST 15 (5-37) U/L ALT 12 (0-40) U/L Alkaline Phosphatase 78 (39-117) U/L Albumin 2.7 L (3.5-5.0) g/dL All other labs normal. Assessment and Plan (1) Cellulitis of leg, right: Status: Acute Plan 68-year-old male patient with diabetes mellitus presenting following trauma to the right foot several weeks ago now with an area of cellulitis and pain involving the foot and knee. Review of x-rays of the knee and foot revealed no evidence of osteomyelitis. I would favor continue treatment with parenteral antibiotics and avoid amputation at this time. He can be followed as an outpatient upon discharge ensure complete healing. Procedures Date of Service Date of Service: 06/21/23
[2023-06-21 11:36] LABS: Glucose, Whole Blood 102 mg/dL (60-115)
--- NOTE | 2023-06-21 12:09 | P.PNIM_ITS ---
Subjective Subjective Date of Service: 06/21/23 Interval History: Being followed for right 5th toe wound and cellulitis extending to right knee, complaining of severe pain extending from right 5th toe extending to right knee unable to bend right knee, denies fever, no chills, decreased appetite, refused MRI due to significant pain and unable to stay still for 45 minutes. Review of Systems All other system reviewed and negative. Physical Exam 2 Vital Signs: Vital Signs: Last Vital Signs Temp 97.2 F 06/21/23 07:23 Pulse 86 06/21/23 07:23 Resp 20 06/21/23 07:23 BP 149/67 H 06/21/23 07:23 Pulse Ox 98 06/21/23 07:23 O2 Del Method Room Air 06/21/23 07:23 BMI result Body Mass Index 35.5 Const: Other: General awake alert x3 in pain Neck supple no JVD. CVS regular rate rhythm, Respiratory lungs clear to auscultation, no respiratory distress, no wheeze, no rhonchi. Gastrointestinal abdomen soft, nontender, bowel sounds audible, no guarding , no rigidity. Extremities right lower extremity ulcer base of right 5th toe medially, no drainage, erythema extending towards right knee, with warmth, swelling and tenderness to palpation See pictures from admission note. Right knee positive warmth, redness , tenderness, mild swelling, limited range of motion Neuro nonfocal, speech clear. Psych appropriate affect Objective Data Active Medications Acetaminophen (Acetaminophen 325 Mg Tablet) 650 mg PO Q6H PRN PRN Reason: Pain, Mild (Pain Scale 1-3) Apixaban (Apixaban 5 Mg Tablet) 5 mg PO BID [facility] Last Admin: 06/21/23 08:42 Dose: 5 mg Documented By: SHERYL Aspirin (Aspirin Enteric Coated 81 Mg Tablet.) 81 mg PO DAILY [facility] Last Admin: 06/21/23 08:42 Dose: 81 mg Documented By: SHERYL Atorvastatin Calcium (Atorvastatin Calcium 40 Mg Tablet) 40 mg PO DAILY [facility] Last Admin: 06/21/23 08:41 Dose: 40 mg Documented By: SHERYL Dextrose (Dextrose 50 % 25 Gm/50 Ml Syringe) 25 gm IVPUSH Q15M PRN; Protocol PRN Reason: per Hypoglycemia Standing Ord. Furosemide (Furosemide 40 Mg Tablet) 40 mg PO DAILY [facility]; Protocol Last Admin: 06/21/23 08:42 Dose: 40 mg Documented By: SHERYL Glucose (Glucose Gel 15 Gm Gel..Gram.) 15 gm PO Q15M PRN; Protocol PRN Reason: per Hypoglycemia Standing Ord. Hydromorphone HCl (Hydromorphone Hcl 1 Mg/Ml Syringe) 1 mg IVPUSH Q4H PRN; Protocol PRN Reason: Pain, Severe (Pain Scale 7-10) Last Admin: 06/21/23 08:38 Dose: 1 mg Documented By: SHERYL Sodium Chloride (Ns) 1,000 mls @ 100 mls/hr IVCONT .Q10H [facility] Last Admin: 06/21/23 08:44 Dose: 100 mls/hr Documented By: SHERYL Piperacillin Sod/Tazobactam (Sod 3.375 gm/ Sodium Chloride) 50 mls @ 100 mls/hr IV Q6H [facility] Last Infusion: 06/21/23 05:08 Dose: Infused Documented By: CLARENCE Vancomycin HCl 1,250 mg/ (Sodium Chloride) 250 mls @ 166.667 mls/hr IV Q24H [facility] Insulin Glargine (Insulin Glargine,Hum.Rec.Anlog 100 Unit/Ml 10 Ml Vial) 73 unit SUBCUT DAILY [facility] Last Admin: 06/21/23 08:41 Dose: 73 unit Documented By: SHERYL Insulin Human Lispro (Insulin Lispro 100 Unit/Ml 3 Ml Vial) 0 unit SUBCUT QIDACHS [facility]; Protocol Last Admin: 06/21/23 07:44 Dose: Not Given Documented By: SHERYL Non-Admin Reason: No Insulin Coverage Metoprolol Succinate (Metoprolol Succinate Er 50 Mg Tab.Er.24h) 50 mg PO DAILY [facility]; Protocol Last Admin: 06/21/23 08:42 Dose: 50 mg Documented By: SHEYRL Ondansetron HCl (Ondansetron Hcl 4 Mg/2 Ml Vial) 4 mg IVPUSH Q8H PRN PRN Reason: Nausea and Vomiting Oxycodone HCl (Oxycodone Hcl Immed Release 5 Mg Tablet) 5 mg PO Q6H PRN PRN Reason: Pain, Moderate(Pain Scale 4-6) Last Admin: 06/21/23 00:21 Dose: 5 mg Documented By: LEXIE Pharmacy Consult (Consult Rx Vancomycin Dosing) 1 each MISCELLANE DAILY PRN PRN Reason: Consult order Senna (Sennosides 8.6 Mg Tablet) 17.2 mg PO BEDTIME PRN PRN Reason: Constipation Sodium Chloride (0.9 % Sodium Chloride Flush 3 Ml Syringe) [facility] Last Admin: 06/21/23 08:44 Dose: 3 ml Documented By: SHERYL Labs 06/21/23 05:30 06/21/23 05:30 Labs: Laboratory Results - last 24 hr 06/20/23 06/20/23 06/21/23 17:12 21:32 05:30 MCV 79.1 L 82.2 MCH 24.8 L 25.7 L MCHC 31.3 31.3 RDW 17.9 H 17.9 H Plt Count 337 306 MPV 8.9 L 9.0 L Immature Gran % (Auto) 0.7 H 0.4 Neut % (Auto) 84.2 H 81.6 H Lymph % (Auto) 10.7 L 13.1 L Davidson % (Auto) 3.9 4.2 Eos % (Auto) 0.4 0.6 Baso % (Auto) 0.1 0.1 Lymph # (Auto) 1.5 1.5 Davidson # (Auto) 0.5 0.5 Eos # (Auto) 0.1 0.1 Baso # (Auto) 0.0 0.0 Abs Immat Gran (auto) 0.09 H 0.04 H Absolute Neuts (auto) 11.6 H 9.2 H Absolute Nucleated RBC 0.000 0.000 Nucleated RBC % (auto) 0.0 0.0 ESR 85 H Anion Gap 15 12 Estim Creat Clear Calc 45.0 70.4 Estimated GFR 34 56 POC Glucose 77 Random Glucose 203 H 63 Estimat Average Glucose 160 Hemoglobin A1c % 7.2 H Lactic Acid 1.3 Calcium 8.5 8.4 Iron 19 L TIBC 168 L % Saturation 11 L Unsat Iron Binding 149 Ferritin 956 H Total Bilirubin 0.5 Direct Bilirubin 0.3 AST 15 ALT 12 Alkaline Phosphatase 78 C-Reactive Protein 12.38 H Total Protein 7.4 Albumin 2.7 L 06/21/23 06/21/23 07:22 11:32 MCV MCH MCHC RDW Plt Count MPV Immature Gran % (Auto) Neut % (Auto) Lymph % (Auto) Davidson % (Auto) Eos % (Auto) Baso % (Auto) Lymph # (Auto) Davidson # (Auto) Eos # (Auto) Baso # (Auto) Abs Immat Gran (auto) Absolute Neuts (auto) Absolute Nucleated RBC Nucleated RBC % (auto) ESR Anion Gap Estim Creat Clear Calc Estimated GFR POC Glucose 60 102 Random Glucose Estimat Average Glucose Hemoglobin A1c % Lactic Acid Calcium Iron TIBC % Saturation Unsat Iron Binding Ferritin Total Bilirubin Direct Bilirubin AST ALT Alkaline Phosphatase C-Reactive Protein Total Protein Albumin Assessment and Plan (1) Hyponatremia: Status: Acute (2) Acute kidney injury: Status: Acute (3) Severe sepsis: Status: Acute (4) Cellulitis of leg, right: Status: Acute Plan 59-year-old male with history of uncontrolled insulin-dependent type 2 diabetes, hyperlipidemia, coronary artery disease s/p PCI 2018, paroxysmal atrial fibrillation s/p cardioversion and cardiac ablation anticoagulated with Eliquis, hypertension, obstructive sleep apnea, HFpEF admitted for further management of acute cellulitis RLE with severe sepsis #Acute cellulitis RLE with severe sepsis -on admission leukocytosis 13.8, tachycardic. No lactic acidosis. GINA,soft bp,in uncontrolled type 2 diabetic -continue IV vancomycin and Zosyn started on 06/20 -x-ray knee and foot negative for osteomyelitis. ESR 85, CRP 12. -seen by general surgery Dr. Smiley he recommend to continue current treatment -patient declined MRI due to pain -persistent redness warmth and swelling including right knee will consult Orthopedic surgery, hold Eliquis for possible procedure -continue Dilaudid IV and oxycodone # acute kidney injury likely prerenal resolved with IV fluids, DC IV fluids. #Acute hyponatremia resolved #Acute microcytic anemia - baseline 13.8/44.1% -denies bleeding, likely in setting of acute infection, poor appetite, iron studies not consistent with iron deficiency anemia and stool occult blood pending # uncontrolled insulin-dependent type 2 diabetes with hyperglycemia -hemoglobin A1c 7.2, on Tresiba 150 units subQ daily and Farxiga at home, follow POC glucose, diabetic diet, insulin sliding scale, placed on Lantus since Tresiba non formulary stable blood sugars # hypertension is stable blood pressures, continue metoprolol, and Lasix , losartan on hold due to soft blood pressures and GINA on admission. # CAD/HLD -continue Eliquis, statin, beta-gabrielle # paroxysmal atrial fibrillation-rate controlled on admission -continue Eliquis for anticoagulation and metoprolol for rate control # heart failure preserved ejection fraction -no acute exacerbation,on oral diuretics # obesity class 2 complicating diabetes recommend low-calorie diet. DVT prophylaxis- held eliquis today Full code Patient requires inpatient hospitalization for management of acute cellulitis right lower extremity and uncontrolled diabetic with concern for osteomyelitis and possible necrosis requiring IV antibiotics, expert consultation. Quality Stroke Does the patient have a stroke diagnosis?: No VTE Prior VTE?: No VTE Risk Level:: Medical - moderate - high VTE Device Contraindication: Treatment Not Indicated VTE Drug Contraindication: N/A - Med Ordered
--- NOTE | 2023-06-21 13:22 | HO.WOUND ---
Wound Consult: Initial 68yr old?M admitted to [facility] [place] on 06/20/23 - See progress notes and H&P for detailed history.? Wound consult placed for right 5th toe wound secondary to traumatic injury and uncontrolled diabetes.? Patient agreeable to assessment and photo documentation.? Right 5th toe Etiology: ?Diabetic wound Measurements: see charting for detailed measurements Wound Bed: dry adherent black eschar with medial wound moist red pink yellow slough noted in between toes - see photo Drainage / Odor: yellow no odor Edges: ? irregular Danya wound: +swelling, + erythema -? No Induration noted Pain: reports pain Goals of Treatment: ? Alginate for moisture management and provider to consider referral to Vascular surgeon Recommendations: 1. Turn and Reposition every 2 hours and as needed for patient comfort.? Use pillows or wedges to support off loading positions. 2. Off Load all bony prominences with use of pillows and heel boots if needed.? Apply Preventative foams where needed. ? 3. Monitor for incontinence and moisture control, use barrier creams when needed for prevention and treatment. 4. Provide adequate and supplemental nutrition.? 5. Order or Continue low air loss mattress. 6. Maintain blood glucose levels per Providers order. 7. Right 5th Toe - Cleanse and irrigate with NS, Pat dry.? Apply barrier to periwound, cover wound bed with Durafiber AGl.? Cover with dry gauze and wrap dressing.? Change Daily. Re-consult wound care Nurse for wound deterioration or wound changes.
--- NOTE | 2023-06-21 13:49 | P.CONOP_ITS ---
History of Present Illness HPI Consult date: 06/21/23 Chief complaint: Severe Sepsis, Cellulitis, GINA Narrative: 59-year-old male with history of uncontrolled insulin-dependent type 2 diabetes, hyperlipidemia, coronary artery disease s/p PCI 2017, paroxysmal atrial fibrillation s/p cardioversion and cardiac ablation anticoagulated with Eliquis, hypertension, obstructive sleep apnea, HFpEF presented to the ED earlier today the recommendation of his PCP for evaluation of a nonhealing ulcer of the right 5th toe. The patient reports that while ambulating about three weeks ago, he accidentally kicked the leg of a wood chair with the right small toe and sustained a laceration that did not require repair. However he did develop surrounding erythema and edema and he was prescribed Bactrim and Augmentin. However despite oral antibiotics, continue with ascending erythema, swelling, and pain. He reports that he has not been able to weightbear on the right lower extremity for three weeks. He was admitted to the medicine service for GINA, hyponatremia, sepsis and cellulitis of the right leg. Orthopedics was consulted for ongoing right knee pain. Review of Systems 2 Review of Systems: Yes all other systems are reviewed and are negative PMFSH Past Medical History Medical History (HFpEF) heart failure with preserved ejection fraction Obstructive sleep apnea Hyperlipidemia Type 2 diabetes mellitus Coronary artery disease Atrial fibrillation Hypertension Surgical History Surgical History S/P percutaneous transluminal coronary angioplasty Social History Social History Household Members: Spouse Housing: House Do you presently have visiting nurse or other home services: No Patient Tobacco Use Status: Former Tobacco user Quit Date: 2001 Smoked in Last 30 Days: No e-Cigarette/Vaping Use: Never Used Second Hand Smoke Exposure: No Use of substances other than those prescribed or required for medical reasons: No Currently Displaying Signs/Symptoms of Drug Intoxication Withdrawal: No Have you been hit, kicked, punched, or otherwise hurt by someone within the past year? If so, by whom?: No Do you feel safe in your current relationship?: Yes Is there a partner from a previous relationship who is making you feel unsafe now?: No Are you made to feel afraid or neglected: No Buddhism Healthcare Practices: Restorationism Advance Directives: No Advance Directives Information Provided: Yes Do you have thoughts of harming others: None Do you have a plan to hurt others: No Plan Recently lost weight without trying: No Eating poorly because of decreased appetite: No Nutrition Risks: Diabetes new onset/Uncontrolled service: No Meds Allergies Allergy/AdvReac Type Severity Reaction Status Date / Time No Known Allergies Allergy Verified 06/20/23 16:43 Active Medications: Current Medications Acetaminophen (Acetaminophen 325 Mg Tablet) 650 mg PO Q6H PRN PRN Reason: Pain, Mild (Pain Scale 1-3) Apixaban (Apixaban 5 Mg Tablet) 5 mg PO BID [facility] Last Admin: 06/21/23 08:42 Dose: 5 mg Aspirin (Aspirin Enteric Coated 81 Mg Tablet.Dr) 81 mg PO DAILY [facility] Last Admin: 06/21/23 08:42 Dose: 81 mg Atorvastatin Calcium (Atorvastatin Calcium 40 Mg Tablet) 40 mg PO DAILY [facility] Last Admin: 06/21/23 08:41 Dose: 40 mg Dextrose (Dextrose 50 % 25 Gm/50 Ml Syringe) 25 gm IVPUSH Q15M PRN; Protocol PRN Reason: per Hypoglycemia Standing Ord. Furosemide (Furosemide 40 Mg Tablet) 40 mg PO DAILY [facility]; Protocol Last Admin: 06/21/23 08:42 Dose: 40 mg Glucose (Glucose Gel 15 Gm Gel..Gram.) 15 gm PO Q15M PRN; Protocol PRN Reason: per Hypoglycemia Standing Ord. Hydromorphone HCl (Hydromorphone Hcl 1 Mg/Ml Syringe) 1 mg IVPUSH Q4H PRN; Protocol PRN Reason: Pain, Severe (Pain Scale 7-10) Last Admin: 06/21/23 13:18 Dose: 1 mg Vancomycin HCl 1,250 mg/ (Sodium Chloride) 250 mls @ 166.667 mls/hr IV Q24H [facility] Piperacillin Sod/Tazobactam (Sod 3.375 gm/ Sodium Chloride) 50 mls @ 100 mls/hr IV Q6H [facility] Last Infusion: 06/21/23 13:31 Dose: Infused Insulin Glargine (Insulin Glargine,Hum.Rec.Anlog 100 Unit/Ml 10 Ml Vial) 73 unit SUBCUT DAILY [facility] Last Admin: 06/21/23 08:41 Dose: 73 unit Insulin Human Lispro (Insulin Lispro 100 Unit/Ml 3 Ml Vial) 0 unit SUBCUT QIDACHS [facility]; Protocol Last Admin: 06/21/23 12:36 Dose: Not Given Metoprolol Succinate (Metoprolol Succinate Er 50 Mg Tab.Er.24h) 50 mg PO DAILY [facility]; Protocol Last Admin: 06/21/23 08:42 Dose: 50 mg Ondansetron HCl (Ondansetron Hcl 4 Mg/2 Ml Vial) 4 mg IVPUSH Q8H PRN PRN Reason: Nausea and Vomiting Oxycodone HCl (Oxycodone Hcl Immed Release 5 Mg Tablet) 5 mg PO Q6H PRN PRN Reason: Pain, Moderate(Pain Scale 4-6) Last Admin: 06/21/23 00:21 Dose: 5 mg Pharmacy Consult (Consult Rx Vancomycin Dosing) 1 each MISCELLANE DAILY PRN PRN Reason: Consult order Senna (Sennosides 8.6 Mg Tablet) 17.2 mg PO BEDTIME PRN PRN Reason: Constipation Sodium Chloride (0.9 % Sodium Chloride Flush 3 Ml Syringe) [facility] Last Admin: 06/21/23 08:44 Dose: 3 ml Home Medications Medication Instructions Recorded Confirmed Last Taken Type acetaminophen 500 mg tablet 1,000 mg PO TID PRN Pain (Scale 06/20/23 06/20/23 Unknown History Score 1-3) amoxicillin 875 mg-potassium 1 tab PO BID 06/20/23 06/20/23 06/20/23 History clavulanate 125 mg tablet apixaban 5 mg tablet (Eliquis) 5 mg PO BID 06/20/23 06/20/23 06/20/23 History aspirin 81 mg tablet,delayed 81 mg PO DAILY 06/20/23 06/20/23 06/20/23 History release dapagliflozin propanediol 5 mg 5 mg PO DAILY 06/20/23 06/20/23 06/20/23 History tablet (Farxiga) furosemide 40 mg tablet 40 mg PO DAILY 06/20/23 06/20/23 06/20/23 History ibuprofen 600 mg tablet 600 mg PO Q6H PRN Pain (Scale 06/20/23 06/20/23 06/20/23 History Score 1-3) insulin degludec 200 unit/mL (3 150 unit subcut DAILY 06/20/23 06/20/23 06/20/23 History mL) subcutaneous pen (Tresiba FlexTouch U-200 insulin) losartan 50 mg tablet 50 mg PO DAILY 06/20/23 06/20/23 06/20/23 History metoprolol succinate 50 mg 50 mg PO DAILY 06/20/23 06/20/23 06/20/23 History tablet,extended release 24 hr rosuvastatin 10 mg tablet 10 mg PO DAILY 06/20/23 06/20/23 06/20/23 History sulfamethoxazole 800 1 tab PO BID 06/20/23 06/20/23 06/20/23 History mg-trimethoprim 160 mg tablet Physical Exam 2 Vital Signs: Vital Signs: Last Vital Signs Temp 97.2 F 06/21/23 07:23 Pulse 86 06/21/23 07:23 Resp 20 06/21/23 07:23 BP 149/67 H 06/21/23 07:23 Pulse Ox 98 06/21/23 07:23 O2 Del Method Room Air 06/21/23 07:23 BMI result Body Mass Index 35.5 Const: General: cooperative, healthy appearing and no acute distress Resp: Effort & Inspection: normal respiratory effort and able to speak in complete sentences Cardio: Rate: regular rate Peripheral pulses: Peripheral pulses 2+ throughout GI: Palpation (GI): Soft to palpation Skin: Lesions: no lesions Rashes: no rashes Extrem: Other: Right knee no effusion. Pain with flexion and extension but after working with the patient on ROM he began to experience less pain and more motion. Cellulitis noted anterior proximal tibia. Question of a defect at the quad tendon. Difficulty with active flexion and extension. NVI. Results Labs 06/21/23 05:30 06/21/23 05:30 Labs: Abnormal lab results 06/20/23 06/21/23 Range/Units 17:12 05:30 WBC 13.8 H 11.3 H (4.8-10.8) X10*3/uL RBC 4.44 L 3.81 L (4.60-5.80) X10*6/uL Hgb 11.0 L 9.8 L (14.0-18.0) g/dl Hct 35.1 L 31.3 L (42.0-52.0) % MCV 79.1 L (80.0-98.0) fL MCH 24.8 L 25.7 L (27.0-33.0) pg RDW 17.9 H 17.9 H (11.0-16.0) % MPV 8.9 L 9.0 L (9.4-12.4) fL Immature Gran % (Auto) 0.7 H (0.0-0.4) % Neut % (Auto) 84.2 H 81.6 H (45-73) % Lymph % (Auto) 10.7 L 13.1 L (20-40) % Abs Immat Gran (auto) 0.09 H 0.04 H (0.00-0.03) X10*3/uL Absolute Neuts (auto) 11.6 H 9.2 H (2.0-8.3) x10*3/uL ESR 85 H (0-15) MM/HR Sodium 130 L (135-145) mmol/L Carbon Dioxide 21 L (22-29) mmol/L BUN 44 H 29 H (9-16) mg/dL Creatinine 1.98 H (0.5-1.4) mg/dL Random Glucose 203 H (60-115) mg/dL Hemoglobin A1c % 7.2 H (<6.0) % Iron 19 L (45-160) mcg/dL TIBC 168 L (228-428) mcg/dL % Saturation 11 L (15-50) % Ferritin 956 H (20-250) ng/mL C-Reactive Protein 12.38 H (< or = 0.50) mg/dL Albumin 2.7 L (3.5-5.0) g/dL H & H 06/20/23 06/21/23 Range/Units 17:12 05:30 Hgb 11.0 L 9.8 L (14.0-18.0) g/dl Hct 35.1 L 31.3 L (42.0-52.0) % All other labs normal. Assessment and Plan (1) Cellulitis of leg, right: Status: Acute (2) Knee pain, right: Status: Acute (3) Injury of quadriceps tendon: Status: Acute x-rays reviewed revealed significant osteoarthritis CT scan of the right knee to be obtained to r/o quad tendon tear No evidence of septic joint Will continue to follow Procedures Date of Service Date of Service: 06/21/23
--- NOTE | 2023-06-21 13:49 | PM.EVENT ---
Event Note Date of Service: 06/21/23 Time Spent With Patient Time: Total time managing care of this patient today ____ minutes.
--- NOTE | 2023-06-21 14:11 | MHC.CM.PN ---
pt tyrell with is independent has a ride hoe may need vna when dcd
--- NOTE | 2023-06-21 14:14 | MHC.CLN ---
NUTRITION CONSULT FOR DM. PATIENT STATED THAT HAS HAD DM X 10 YEARS. TRIES NOT TO OVEREAT AND DOES NOT EAT JUNK. PROVIDED WITH BOOKLET ON [employer] MEAL PLANNING WITH DM.
[2023-06-21 15:03] VITALS: BP 144/67; PULSE 79; RESP 18; TEMP 36.4; O2SAT 99
[2023-06-21] MEDS: Acetaminophen 325 MG TABLET 650 MG PO (15:17)
[2023-06-21 16:02] VITALS: BP 144/67; PULSE 79; O2SAT 99
[2023-06-21 16:02] LABS: Glucose, Whole Blood 104 mg/dL (60-115)
[2023-06-21] MEDS: vancomycin HCL 1,250 MG in 0.9 % Sodium Chloride 250 ML 166.67 MG IV (18:14)
[2023-06-21 19:05] VITALS: BP 121/60; PULSE 81; RESP 18; TEMP 36.4; O2SAT 96
[2023-06-21 20:31] LABS: Glucose, Whole Blood 143 mg/dL (60-115)
[2023-06-22] MEDS: HYDROmorphone HCl 1 MG/ML SYRINGE IVPUSH ×5 (00:52→20:58)
[2023-06-22] MEDS: Piperacillin Sodium/Tazobactam 3.375 GM in 0.9 % Sodium Chloride 50 ML IV ×4 (00:53→18:38)
[2023-06-22 03:08] VITALS: BP 111/53; PULSE 76; RESP 18; TEMP 36.4; O2SAT 97
[2023-06-22 07:09] LABS: Hematocrit 30.4 % (42.0-52.0); Hemoglobin 9.2 g/dl (14.0-18.0); Mean Corpuscular HGB Conc 30.3 g/dl (31.0-36.0); Mean Corpuscular Hemoglobin 24.7 pg (27.0-33.0); Mean Corpuscular Volume 81.5 fL (80.0-98.0); Mean Platelet Volume 8.9 fL (9.4-12.4); Platelet Count 283 X10*3/uL (160-400); Red Blood Count 3.73 X10*6/uL (4.60-5.80); Red Cell Distribution Width 17.7 % (11.0-16.0); White Blood Count 10.6 X10*3/uL (4.8-10.8)
[2023-06-22 07:24] LABS: Anion Gap 10 (12-20); Blood Urea Nitrogen 20 mg/dL (9-16); Calcium 8.4 mg/dL (8.4-10.2); Carbon Dioxide 26 mmol/L (22-29); Chloride 103 mmol/L (96-108); Creatinine Clr Calc Pharmacy 86.6; Estimated Glomerular Filt Rate > 60; Glucose Random 44 mg/dL (60-115); Potassium 4.6 mmol/L (3.3-5.1); Sodium 134 mmol/L (135-145)
[2023-06-22 07:32] LABS: Glucose, Whole Blood 49 mg/dL (60-115)
[2023-06-22 07:39] VITALS: BP 145/64; PULSE 94; RESP 18; TEMP 36.7; O2SAT 98
[2023-06-22] MEDS: Atorvastatin Calcium 40 MG TABLET PO (07:44)
[2023-06-22] MEDS: Metoprolol Succinate ER 50 MG TAB.ER.24H PO (07:45)
[2023-06-22] MEDS: Aspirin Enteric Coated 81 MG TABLET.DR PO (07:45)
[2023-06-22 09:11] VITALS: BP 145/64; PULSE 94; O2SAT 98
[2023-06-22 09:14] LABS: Glucose, Whole Blood 170 mg/dL (60-115)
--- NOTE | 2023-06-22 10:18 | PM.EVENT ---
Event Note Date of Service: 06/22/23 Event Note: CT scan reviewed with Dr. Quinonez No evidence of septic arthritis or infection No abscess noted on CT On exam there was a questionable divot at the quad tendon In comparison with the CT there is a possibility of partial tearing -No surgical intervention needed at this time -Recommend P.T. for ROM and WBAT with walker. Patient may f/u out patient Time Spent With Patient Time: Total time managing care of this patient today ____ minutes.
--- NOTE | 2023-06-22 10:39 | MHC.CM.PN ---
Addendum entered by Shruti Almonte 06/22/23 14:57: PT RECOMMENDING STR CM MET WITH PT WHO WAS UNSURE IF HE WAS INTERESTED BUT AGREED TO LET CM MAKE A COUPLE REFERRALS REFERRALS MADE CM THEN MET WITH PT AND HIS AND DAUGHTER AT BEDSIDE THEY REPORT [facility] PREFERRED [facility] PTS BROTHER IN LAW IS A SPEECH THERAPIST THERE REFERRAL MADE Original Note: PER MD ROUNDS, PT EXPECTED TO REMAIN THROUGH THE WEEKEND
[2023-06-22 11:39] LABS: Glucose, Whole Blood 183 mg/dL (60-115)
[2023-06-22] MEDS: Insulin Lispro 100 UNIT/ML 3 ML VIAL SUBCUT ×3 (11:45→20:11)
--- NOTE | 2023-06-22 13:07 | P.PNIM_ITS ---
Subjective Subjective Date of Service: 06/22/23 Interval History: Feeling better this morning still complaining of right leg pain, feeling better sitting on chair, denies fever, no chills tolerating diet no nausea, no vomiting, no abdominal pain or diarrhea, no other acute issues overnight. Review of Systems All other system reviewed and negative. Physical Exam 2 Vital Signs: Vital Signs: Last Vital Signs Temp 98.0 F 06/22/23 07:39 Pulse 94 06/22/23 09:11 Resp 18 06/22/23 07:39 BP 145/64 H 06/22/23 09:11 Pulse Ox 98 06/22/23 09:11 O2 Del Method Room Air 06/22/23 07:39 BMI result Body Mass Index 35.5 Const: Other: General awake alert x3, no distress Neck supple no JVD. CVS regular rate rhythm, Respiratory lungs clear to auscultation, no respiratory distress, no wheeze, no rhonchi. Gastrointestinal abdomen soft, non tender, bowel sounds audible, no guarding , no rigidity. Extremities right lower extremity: ulcer right 5th toe web, no drainage, erythema extending towards right knee, with warmth, swelling and tenderness to palpation improved since yesterday (See pictures from admission note.) Right knee redness and swelling improved, limited range of motion See pictures from admission note. Neuro nonfocal, speech clear. Psych appropriate affect Objective Data Active Medications Acetaminophen (Acetaminophen 325 Mg Tablet) 650 mg PO Q6H PRN PRN Reason: Pain, Mild (Pain Scale 1-3) Last Admin: 06/21/23 15:17 Dose: 650 mg Documented By: SHERYL Apixaban (Apixaban 5 Mg Tablet) 5 mg PO BID [facility] Last Admin: 06/21/23 08:42 Dose: 5 mg Documented By: SHERYL Aspirin (Aspirin Enteric Coated 81 Mg Tablet.) 81 mg PO DAILY [facility] Last Admin: 06/22/23 07:45 Dose: 81 mg Documented By: ERIK Atorvastatin Calcium (Atorvastatin Calcium 40 Mg Tablet) 40 mg PO DAILY [facility] Last Admin: 06/22/23 07:44 Dose: 40 mg Documented By: ERIK Dextrose (Dextrose 50 % 25 Gm/50 Ml Syringe) 25 gm IVPUSH Q15M PRN; Protocol PRN Reason: per Hypoglycemia Standing Ord. Furosemide (Furosemide 40 Mg Tablet) 40 mg PO DAILY [facility]; Protocol Last Admin: 06/22/23 07:37 Dose: Not Given Documented By: ERIK Non-Admin Reason: Physician Held Med Glucose (Glucose Gel 15 Gm Gel..Gram.) 15 gm PO Q15M PRN; Protocol PRN Reason: per Hypoglycemia Standing Ord. Hydromorphone HCl (Hydromorphone Hcl 1 Mg/Ml Syringe) 1 mg IVPUSH Q4H PRN; Protocol PRN Reason: Pain, Severe (Pain Scale 7-10) Last Admin: 06/22/23 11:05 Dose: 1 mg Documented By: ERIK Vancomycin HCl 1,250 mg/ (Sodium Chloride) 250 mls @ 166.667 mls/hr IV Q24H [facility] Last Infusion: 06/21/23 20:12 Dose: Infused Documented By: DAPHNIE Piperacillin Sod/Tazobactam (Sod 3.375 gm/ Sodium Chloride) 50 mls @ 100 mls/hr IV Q6H [facility] Last Admin: 06/22/23 13:01 Dose: 100 mls/hr Documented By: ERIK Insulin Glargine (Insulin Glargine,Hum.Rec.Anlog 100 Unit/Ml 10 Ml Vial) 50 unit SUBCUT DAILY [facility] Insulin Human Lispro (Insulin Lispro 100 Unit/Ml 3 Ml Vial) 0 unit SUBCUT QIDACHS [facility]; Protocol Last Admin: 06/22/23 11:45 Dose: 2 unit Documented By: ERIK Metoprolol Succinate (Metoprolol Succinate Er 50 Mg Tab.Er.24h) 50 mg PO DAILY [facility]; Protocol Last Admin: 06/22/23 07:45 Dose: 50 mg Documented By: ERIK Ondansetron HCl (Ondansetron Hcl 4 Mg/2 Ml Vial) 4 mg IVPUSH Q8H PRN PRN Reason: Nausea and Vomiting Oxycodone HCl (Oxycodone Hcl Immed Release 5 Mg Tablet) 5 mg PO Q6H PRN PRN Reason: Pain, Moderate(Pain Scale 4-6) Last Admin: 06/21/23 15:19 Dose: 5 mg Documented By: SHERYL Pharmacy Consult (Consult Rx Vancomycin Dosing) 1 each MISCELLANE DAILY PRN PRN Reason: Consult order Senna (Sennosides 8.6 Mg Tablet) 17.2 mg PO BEDTIME PRN PRN Reason: Constipation Sodium Chloride (0.9 % Sodium Chloride Flush 3 Ml Syringe) 3 ml IVFLUSH QSHIFT AP Last Admin: 06/22/23 07:23 Dose: Not Given Documented By: ERIK Non-Admin Reason: Previously Administered Labs 06/22/23 05:32 06/22/23 05:32 Labs: Laboratory Results - last 24 hr 06/21/23 06/21/23 06/22/23 15:52 20:28 05:32 MCV 81.5 MCH 24.7 L MCHC 30.3 L RDW 17.7 H Plt Count 283 MPV 8.9 L Absolute Nucleated RBC 0.000 Nucleated RBC % (auto) 0.0 Anion Gap 10 L Estim Creat Clear Calc 86.6 Estimated GFR > 60 POC Glucose 104 143 H Random Glucose 44 L* Calcium 8.4 06/22/23 06/22/23 06/22/23 07:26 09:10 11:35 MCV MCH MCHC RDW Plt Count MPV Absolute Nucleated RBC Nucleated RBC % (auto) Anion Gap Estim Creat Clear Calc Estimated GFR POC Glucose 49 L* 170 H 183 H Random Glucose Calcium Microbiology Microbiology Results: Microbiology 06/20/23 17:14 Blood Culture - Preliminary Blood - Venous No growth after 24 hours. 06/20/23 17:12 Blood Culture - Preliminary Blood - Venous No growth after 24 hours. Assessment and Plan (1) Hyponatremia: Status: Acute (2) Acute kidney injury: Status: Acute (3) Severe sepsis: Status: Acute (4) Cellulitis of leg, right: Status: Acute Plan 59-year-old male with history of uncontrolled insulin-dependent type 2 diabetes, hyperlipidemia, coronary artery disease s/p PCI 2018, paroxysmal atrial fibrillation s/p cardioversion and cardiac ablation anticoagulated with Eliquis, hypertension, obstructive sleep apnea, HFpEF admitted for further management of acute cellulitis RLE with severe sepsis #Acute cellulitis RLE with severe sepsis -on admission leukocytosis 13.8, tachycardic. No lactic acidosis. GINA,soft bp,in uncontrolled type 2 diabetic -WBC normalized, blood cultures x2 negative -continue IV vancomycin and Zosyn started on 06/20 -x-ray knee and foot negative for osteomyelitis. ESR 85, CRP 12. -seen by general surgery Dr. Smiley he recommend to continue current treatment -seen by Orthopedic surgery they recommended CT knee to rule out quadricep tendon tear, CT showed no evidence of septic arthritis, no acute fracture dislocation, showed tricompartmental osteoarthritis and small joint effusion. -patient declined MRI due to pain, will hold MRI for now, follow ESR at am -redness warmth and swelling improving -continue Dilaudid IV and oxycodone # acute kidney injury likely prerenal resolved with IV fluids, DC IV fluids. Follow BMP. #Acute hyponatremia resolved #Acute microcytic anemia - baseline 13.8/44.1% -denies bleeding, likely in setting of acute infection, poor appetite, iron studies not consistent with iron deficiency anemia and stool occult blood pending. Hematocrit above transfusion threshold # uncontrolled insulin-dependent type 2 diabetes -noted to have low blood sugars in 40s this morning patient asymptomatic -hemoglobin A1c 7.2, on Tresiba 150 units subQ daily and Farxiga at home, Will hold Lantus this morning and reduced dose to 50 units was on 73 units equivalent to home Tresiba dose. follow POC glucose, diabetic diet, insulin sliding scale # hypertension continue metoprolol, and Lasix , losartan on hold due to soft blood pressures on admission BP trending up will follow and resume losartan if needed. # CAD/HLD -continue Eliquis, statin, beta-gabrielle # paroxysmal atrial fibrillation-rate controlled on admission -continue Eliquis for anticoagulation and metoprolol for rate control # heart failure preserved ejection fraction -no acute exacerbation,on oral diuretics # obesity class 2 complicating diabetes recommend low-calorie diet. DVT prophylaxis- eliquis Full code Patient requires inpatient hospitalization for management of acute cellulitis right lower extremity and uncontrolled diabetic with concern for osteomyelitis and possible necrosis requiring IV antibiotics, expert consultation. Quality Stroke Does the patient have a stroke diagnosis?: No VTE Prior VTE?: No VTE Risk Level:: Medical - moderate - high VTE Device Contraindication: Treatment Not Indicated VTE Drug Contraindication: N/A - Med Ordered
[2023-06-22 14:54] VITALS: BP 136/65; PULSE 82; RESP 18; TEMP 36.9; O2SAT 96
[2023-06-22 16:27] LABS: Glucose, Whole Blood 167 mg/dL (60-115)
[2023-06-22 16:32] LABS: Vancomycin Random 8.6 mcg/mL (15-20)
[2023-06-22] MEDS: 0.9 % Sodium Chloride Flush 3 ML SYRINGE IVFLUSH ×2 (16:55→20:11)
[2023-06-22] MEDS: vancomycin HCL 1,250 MG in 0.9 % Sodium Chloride 250 ML 166.67 MG IV (17:01)
[2023-06-22 18:51] VITALS: BP 140/66; PULSE 83; RESP 18; TEMP 36.8; O2SAT 96
[2023-06-22 20:04] LABS: Glucose, Whole Blood 217 mg/dL (60-115)
[2023-06-22] MEDS: Apixaban 5 MG TABLET PO (20:11)
[2023-06-23] MEDS: Piperacillin Sodium/Tazobactam 3.375 GM in 0.9 % Sodium Chloride 50 ML IV ×4 (00:37→19:39)
[2023-06-23] MEDS: HYDROmorphone HCl 1 MG/ML SYRINGE IVPUSH ×2 (01:02→09:59)
[2023-06-23 04:00] VITALS: BP 132/63; PULSE 77; RESP 18; TEMP 36.1; O2SAT 96
[2023-06-23] MEDS: oxyCODONE HCl Immed Release 5 MG TABLET PO ×2 (04:27→17:38)
[2023-06-23] MEDS: vancomycin HCL 1,250 MG in 0.9 % Sodium Chloride 250 ML 166.67 MG IV ×2 (05:01→17:18)
[2023-06-23 06:27] LABS: Hematocrit 28.4 % (42.0-52.0); Hemoglobin 8.8 g/dl (14.0-18.0); Mean Corpuscular Hemoglobin 25.1 pg (27.0-33.0); Mean Corpuscular Volume 80.9 fL (80.0-98.0); Mean Platelet Volume 8.7 fL (9.4-12.4); Platelet Count 255 X10*3/uL (160-400); Red Blood Count 3.51 X10*6/uL (4.60-5.80); Red Cell Distribution Width 17.6 % (11.0-16.0); White Blood Count 9.3 X10*3/uL (4.8-10.8)
[2023-06-23 06:59] LABS: Anion Gap 11 (12-20); Blood Urea Nitrogen 16 mg/dL (9-16); Calcium 8.3 mg/dL (8.4-10.2); Carbon Dioxide 26 mmol/L (22-29); Chloride 100 mmol/L (96-108); Creatinine Clr Calc Pharmacy 110.1; Estimated Glomerular Filt Rate > 60; Glucose Random 70 mg/dL (60-115); Potassium 4.3 mmol/L (3.3-5.1); Sodium 133 mmol/L (135-145)
[2023-06-23 07:05] LABS: Glucose, Whole Blood 77 mg/dL (60-115)
[2023-06-23 07:10] LABS: Erythrocyte Sedimentation Rate 111 MM/HR (0-15)
[2023-06-23] MEDS: 0.9 % Sodium Chloride Flush 3 ML SYRINGE IVFLUSH ×3 (07:25→20:51)
[2023-06-23] MEDS: Aspirin Enteric Coated 81 MG TABLET.DR PO (07:39)
[2023-06-23] MEDS: Furosemide 40 MG TABLET PO (07:39)
[2023-06-23] MEDS: Atorvastatin Calcium 40 MG TABLET PO (07:39)
[2023-06-23] MEDS: Metoprolol Succinate ER 50 MG TAB.ER.24H PO (07:40)
[2023-06-23] MEDS: Apixaban 5 MG TABLET PO ×2 (07:40→20:50)
[2023-06-23 07:47] VITALS: BP 131/60; PULSE 79; RESP 18; TEMP 36.2; O2SAT 97
[2023-06-23 11:31] LABS: Glucose, Whole Blood 199 mg/dL (60-115)
[2023-06-23] MEDS: Insulin Lispro 100 UNIT/ML 3 ML VIAL SUBCUT ×3 (11:40→20:50)
[2023-06-23 14:59] VITALS: BP 121/58; PULSE 82; RESP 18; TEMP 36.3; O2SAT 96
--- NOTE | 2023-06-23 15:02 | P.PNIM_ITS ---
Subjective Subjective Date of Service: 06/23/23 Interval History: seen and examined this morning follow up for RLE cellulitis reporting knee pain, swelling no fever, chills Review of Systems Review of Systems: Yes all other systems are reviewed and are negative Constitutional Constitutional: Denies chills and Denies fever(s) Cardiovascular Cardiovascular: Denies chest pain and Denies dyspnea Respiratory Respiratory: Denies dyspnea Physical Exam 2 Vital Signs: Vital Signs: Last Vital Signs Temp 97.2 F 06/23/23 07:47 Pulse 79 06/23/23 07:47 Resp 18 06/23/23 07:47 BP 131/60 06/23/23 07:47 Pulse Ox 97 06/23/23 07:47 O2 Del Method Room Air 06/23/23 07:47 BMI result Body Mass Index 35.5 Const: General: cooperative, comfortable, no acute distress, alert and awake Nutritional Appearance: overweight Orientation/consciousness: patient oriented x3 Resp: Effort & Inspection: normal respiratory effort, able to speak in complete sentences, no respiratory distress and no use of accessory muscles Cardio: Rate: regular rate GI: Inspection: No distended Palpation (GI): Soft to palpation and nontender Skin: Other: right fifth toe with shallow ulcer surrounding erythema, tenderness/pain more around knee; erythema improving Neuro: General: patient oriented x3, moves all extremities and CN's II-XI intact bilaterally Extrem: Other: RLE swelling Objective Data Active Medications Acetaminophen (Acetaminophen 325 Mg Tablet) 650 mg PO Q6H PRN PRN Reason: Pain, Mild (Pain Scale 1-3) Last Admin: 06/21/23 15:17 Dose: 650 mg Documented By: SHERYL Apixaban (Apixaban 5 Mg Tablet) 5 mg PO BID [facility] Last Admin: 06/23/23 07:40 Dose: 5 mg Documented By: ERIK Aspirin (Aspirin Enteric Coated 81 Mg Tablet.) 81 mg PO DAILY [facility] Last Admin: 06/23/23 07:39 Dose: 81 mg Documented By: ERIK Atorvastatin Calcium (Atorvastatin Calcium 40 Mg Tablet) 40 mg PO DAILY [facility] Last Admin: 06/23/23 07:39 Dose: 40 mg Documented By: ERIK Dextrose (Dextrose 50 % 25 Gm/50 Ml Syringe) 25 gm IVPUSH Q15M PRN; Protocol PRN Reason: per Hypoglycemia Standing Ord. Furosemide (Furosemide 40 Mg Tablet) 40 mg PO DAILY [facility]; Protocol Last Admin: 06/23/23 07:39 Dose: 40 mg Documented By: ERIK Glucose (Glucose Gel 15 Gm Gel..Gram.) 15 gm PO Q15M PRN; Protocol PRN Reason: per Hypoglycemia Standing Ord. Hydromorphone HCl (Hydromorphone Hcl 1 Mg/Ml Syringe) 1 mg IVPUSH Q4H PRN; Protocol PRN Reason: Pain, Severe (Pain Scale 7-10) Last Admin: 06/23/23 09:59 Dose: 1 mg Documented By: ERIK Piperacillin Sod/Tazobactam (Sod 3.375 gm/ Sodium Chloride) 50 mls @ 100 mls/hr IV Q6H [facility] Last Infusion: 06/23/23 13:28 Dose: Infused Documented By: ERIK Vancomycin HCl 1,250 mg/ (Sodium Chloride) 250 mls @ 166.667 mls/hr IV Q12H [facility] Last Infusion: 06/23/23 06:39 Dose: Infused Documented By: DAPHNIE Insulin Human Lispro (Insulin Lispro 100 Unit/Ml 3 Ml Vial) 0 unit SUBCUT QIDACHS [facility]; Protocol Last Admin: 06/23/23 11:40 Dose: 2 unit Documented By: ERIK Metoprolol Succinate (Metoprolol Succinate Er 50 Mg Tab.Er.24h) 50 mg PO DAILY [facility]; Protocol Last Admin: 06/23/23 07:40 Dose: 50 mg Documented By: ERIK Ondansetron HCl (Ondansetron Hcl 4 Mg/2 Ml Vial) 4 mg IVPUSH Q8H PRN PRN Reason: Nausea and Vomiting Oxycodone HCl (Oxycodone Hcl Immed Release 5 Mg Tablet) 5 mg PO Q6H PRN PRN Reason: Pain, Moderate(Pain Scale 4-6) Last Admin: 06/23/23 04:27 Dose: 5 mg Documented By: DAPHNIE Pharmacy Consult (Consult Rx Vancomycin Dosing) 1 each MISCELLANE DAILY PRN PRN Reason: Consult order Senna (Sennosides 8.6 Mg Tablet) 17.2 mg PO BEDTIME PRN PRN Reason: Constipation Sodium Chloride (0.9 % Sodium Chloride Flush 3 Ml Syringe) 3 ml IVFLUSH QSHIFT AP Last Admin: 06/23/23 07:25 Dose: 3 ml Documented By: ERIK Labs 06/23/23 05:37 06/23/23 05:37 Labs: Laboratory Results - last 24 hr 06/22/23 06/22/23 06/22/23 16:00 16:17 19:57 MCV MCH MCHC RDW Plt Count MPV Absolute Nucleated RBC Nucleated RBC % (auto) ESR Anion Gap Estim Creat Clear Calc Estimated GFR POC Glucose 167 H 217 H Random Glucose Calcium Random Vancomycin 8.6 L 06/23/23 06/23/23 06/23/23 05:37 07:01 11:27 MCV 80.9 MCH 25.1 L MCHC 31.0 RDW 17.6 H Plt Count 255 MPV 8.7 L Absolute Nucleated RBC 0.000 Nucleated RBC % (auto) 0.0 ESR 111 H Anion Gap 11 L Estim Creat Clear Calc 110.1 Estimated GFR > 60 POC Glucose 77 199 H Random Glucose 70 Calcium 8.3 L Random Vancomycin Microbiology Microbiology Results: Microbiology 06/20/23 17:14 Blood Culture - Preliminary Blood - Venous No growth after 48 hours. 06/20/23 17:12 Blood Culture - Preliminary Blood - Venous No growth after 48 hours. Assessment and Plan (1) Injury of quadriceps tendon: Status: Acute Plan 59-year-old male with history of uncontrolled insulin-dependent type 2 diabetes, hyperlipidemia, coronary artery disease s/p PCI 2017, paroxysmal atrial fibrillation s/p cardioversion and cardiac ablation anticoagulated with Eliquis, hypertension, obstructive sleep apnea, HFpEF admitted for further management of acute cellulitis RLE with severe sepsis Acute RLE cellulitis with severe sepsis sepsis resolved, blood cultures x2 negative continue IV vancomycin and Zosyn started on 06/20 x-ray knee and foot negative for osteomyelitis but inflammatory markers elevated, pt has declined MRI will obtain CT scan to eval for osteo seen by general surgery, no acute surgical intervention required due to ongoing swelling and knee pain, seen by Orthopedic surgery, had CT of right knee likely partial quad tendon tear despite negative CT. CT showed no evidence of septic arthritis, no acute fracture dislocation, showed tricompartmental osteoarthritis and small joint effusion. ID consult pending Right knee pain likely partial tear of quadriceps tendon seen by ortho - no surgical intervention required at this time. WBAT with walker outpatient follow up acute kidney injury likely prerenal resolved with IV fluids Acute mild hyponatremia follow BMP Acute microcytic anemia denies bleeding, likely in setting of acute infection, poor appetite, iron studies not consistent with iron deficiency anemia and stool occult blood pending Hematocrit above transfusion threshold follow CBC uncontrolled insulin-dependent type 2 diabetes low am blood sugars - will hold Lantus for now. follow needs with Sliding scale hemoglobin A1c 7.2, on Tresiba 150 units subQ daily and Farxiga at home follow POC glucose, insulin sliding scale, diabetic diet hypertension continue metoprolol, and Lasix losartan on hold due to soft blood pressures on admission BP trending up will follow and resume losartan if needed. CAD/HLD continue Eliquis, statin, beta-gabrielle paroxysmal atrial fibrillation continue Eliquis for anticoagulation and metoprolol for rate control heart failure preserved ejection fraction no acute exacerbation,on oral diuretics obesity class 2 complicating diabetes recommend low-calorie diet. DVT prophylaxis- eliquis Full code Patient requires inpatient hospitalization for management of acute cellulitis right lower extremity and uncontrolled diabetic with concern for osteomyelitis and possible necrosis requiring IV antibiotics, expert consultation. Quality Stroke Does the patient have a stroke diagnosis?: No VTE Prior VTE?: No VTE Risk Level:: Medical - moderate - high VTE Device Contraindication: Treatment Not Indicated VTE Drug Contraindication: N/A - Med Ordered
[2023-06-23] MEDS: iohexoL 350 MG/ML 100 ML INFUS..BTL IV (15:50)
--- NOTE | 2023-06-23 16:04 | W.PM.IDCN ---
History of Present Illness Data of Consult Service Date: 06/23/23 Requesting physician: Amanda Webster Primary Care Provider: Crow Comer MD [facility] Reason for consult: diabetic foot infection possible He presents with discomfort between 4/5 digit right foot and redness laterally after injuring it while hitting chair. He received po Augmentin and Bactrim for five days. He denies fever and chills. He is on Zosyn and Vancomycin. There is negative XR Review of Systems Review of Systems: Yes all other systems are reviewed and are negative PMFSH Past Medical History Medical History (HFpEF) heart failure with preserved ejection fraction Obstructive sleep apnea Hyperlipidemia Type 2 diabetes mellitus Coronary artery disease Atrial fibrillation Hypertension Family History Family history: reviewed and not pertinent Surgical History Surgical History S/P percutaneous transluminal coronary angioplasty Social History Social History Household Members: Spouse Housing: House Do you presently have visiting nurse or other home services: No Patient Tobacco Use Status: Former Tobacco user Quit Date: 2001 Smoked in Last 30 Days: No e-Cigarette/Vaping Use: Never Used Second Hand Smoke Exposure: No Use of substances other than those prescribed or required for medical reasons: No Currently Displaying Signs/Symptoms of Drug Intoxication Withdrawal: No Have you been hit, kicked, punched, or otherwise hurt by someone within the past year? If so, by whom?: No Do you feel safe in your current relationship?: Yes Is there a partner from a previous relationship who is making you feel unsafe now?: No Are you made to feel afraid or neglected: No [employer] Healthcare Practices: Jew Advance Directives: No Advance Directives Information Provided: Yes Do you have thoughts of harming others: None Do you have a plan to hurt others: No Plan Recently lost weight without trying: No Eating poorly because of decreased appetite: No Nutrition Risks: Diabetes new onset/Uncontrolled service: No Meds Allergies Allergy/AdvReac Type Severity Reaction Status Date / Time No Known Allergies Allergy Verified 06/20/23 16:43 Active Medications: Current Medications Acetaminophen (Acetaminophen 325 Mg Tablet) 650 mg PO Q6H PRN PRN Reason: Pain, Mild (Pain Scale 1-3) Last Admin: 06/21/23 15:17 Dose: 650 mg Apixaban (Apixaban 5 Mg Tablet) 5 mg PO BID [facility] Last Admin: 06/23/23 07:40 Dose: 5 mg Aspirin (Aspirin Enteric Coated 81 Mg Tablet.Dr) 81 mg PO DAILY [facility] Last Admin: 06/23/23 07:39 Dose: 81 mg Atorvastatin Calcium (Atorvastatin Calcium 40 Mg Tablet) 40 mg PO DAILY [facility] Last Admin: 06/23/23 07:39 Dose: 40 mg Dextrose (Dextrose 50 % 25 Gm/50 Ml Syringe) 25 gm IVPUSH Q15M PRN; Protocol PRN Reason: per Hypoglycemia Standing Ord. Furosemide (Furosemide 40 Mg Tablet) 40 mg PO DAILY [facility]; Protocol Last Admin: 06/23/23 07:39 Dose: 40 mg Glucose (Glucose Gel 15 Gm Gel..Gram.) 15 gm PO Q15M PRN; Protocol PRN Reason: per Hypoglycemia Standing Ord. Hydromorphone HCl (Hydromorphone Hcl 1 Mg/Ml Syringe) 1 mg IVPUSH Q4H PRN; Protocol PRN Reason: Pain, Severe (Pain Scale 7-10) Last Admin: 06/23/23 09:59 Dose: 1 mg Piperacillin Sod/Tazobactam (Sod 3.375 gm/ Sodium Chloride) 50 mls @ 100 mls/hr IV Q6H [facility] Last Infusion: 06/23/23 13:28 Dose: Infused Vancomycin HCl 1,250 mg/ (Sodium Chloride) 250 mls @ 166.667 mls/hr IV Q12H [facility] Last Infusion: 06/23/23 06:39 Dose: Infused Insulin Human Lispro (Insulin Lispro 100 Unit/Ml 3 Ml Vial) 0 unit SUBCUT QIDACHS [facility]; Protocol Last Admin: 06/23/23 11:40 Dose: 2 unit Metoprolol Succinate (Metoprolol Succinate Er 50 Mg Tab.Er.24h) 50 mg PO DAILY [facility]; Protocol Last Admin: 06/23/23 07:40 Dose: 50 mg Ondansetron HCl (Ondansetron Hcl 4 Mg/2 Ml Vial) 4 mg IVPUSH Q8H PRN PRN Reason: Nausea and Vomiting Oxycodone HCl (Oxycodone Hcl Immed Release 5 Mg Tablet) 5 mg PO Q6H PRN PRN Reason: Pain, Moderate(Pain Scale 4-6) Last Admin: 06/23/23 04:27 Dose: 5 mg Pharmacy Consult (Consult Rx Vancomycin Dosing) 1 each MISCELLANE DAILY PRN PRN Reason: Consult order Senna (Sennosides 8.6 Mg Tablet) 17.2 mg PO BEDTIME PRN PRN Reason: Constipation Sodium Chloride (0.9 % Sodium Chloride Flush 3 Ml Syringe) 3 ml IVFLUSH [facility] Last Admin: 06/23/23 07:25 Dose: 3 ml Home Medications Medication Instructions Recorded Confirmed Last Taken Type acetaminophen 500 mg tablet 1,000 mg PO TID PRN Pain (Scale 06/20/23 06/20/23 Unknown History Score 1-3) amoxicillin 875 mg-potassium 1 tab PO BID 06/20/23 06/20/23 06/20/23 History clavulanate 125 mg tablet apixaban 5 mg tablet (Eliquis) 5 mg PO BID 06/20/23 06/20/23 06/20/23 History aspirin 81 mg tablet,delayed 81 mg PO DAILY 06/20/23 06/20/23 06/20/23 History release dapagliflozin propanediol 5 mg 5 mg PO DAILY 06/20/23 06/20/23 06/20/23 History tablet (Farxiga) furosemide 40 mg tablet 40 mg PO DAILY 06/20/23 06/20/23 06/20/23 History ibuprofen 600 mg tablet 600 mg PO Q6H PRN Pain (Scale 06/20/23 06/20/23 06/20/23 History Score 1-3) insulin degludec 200 unit/mL (3 150 unit subcut DAILY 06/20/23 06/20/23 06/20/23 History mL) subcutaneous pen (Tresiba FlexTouch U-200 insulin) losartan 50 mg tablet 50 mg PO DAILY 06/20/23 06/20/23 06/20/23 History metoprolol succinate 50 mg 50 mg PO DAILY 06/20/23 06/20/23 06/20/23 History tablet,extended release 24 hr rosuvastatin 10 mg tablet 10 mg PO DAILY 06/20/23 06/20/23 06/20/23 History sulfamethoxazole 800 1 tab PO BID 06/20/23 06/20/23 06/20/23 History mg-trimethoprim 160 mg tablet Physical Exam Vital Signs: Vital Signs: Last Vital Signs Temp 97.4 F 06/23/23 14:59 Pulse 82 06/23/23 14:59 Resp 18 06/23/23 14:59 BP 121/58 L 06/23/23 14:59 Pulse Ox 96 06/23/23 14:59 O2 Del Method Room Air 06/23/23 14:59 BMI result Body Mass Index 35.5 Const: General: cooperative HEENT: Head: Yes normal to inspection Face and sinus: Yes normal facial exam Mouth: Normal oral and palatal mucosa present Teeth and gingiva: dentition normal Eyes: General: appearance normal, both eyes and all related structures Pupils: Equal, round and reactive pupils present Resp: Effort & Inspection: normal respiratory effort Cardio: Rate: regular rate Rhythm: regular rhythm GI: Palpation (GI): Soft to palpation and nontender : General: Yes no CVA tenderness Back/Spine/Pelvis: Back: no CVA tenderness Skin: General skin exam: no rashes or lesions noted Neuro: General: moves all extremities Cranial nerves: Yes Equal, round and reactive pupils present Extrem: Other: right lateral foot area and area between 4/5 toe slight red blue neuropathy Psych: Appearance: grossly normal Results Labs 06/23/23 05:37 06/23/23 05:37 Labs: Short CBC 06/23/23 Range/Units 05:37 WBC 9.3 (4.8-10.8) X10*3/uL Hgb 8.8 L (14.0-18.0) g/dl Hct 28.4 L (42.0-52.0) % Plt Count 255 (160-400) X10*3/uL BMP 06/23/23 05:37 Sodium 133 L Potassium 4.3 Chloride 100 Carbon Dioxide 26 BUN 16 Creatinine 0.83 Calcium 8.3 L Microbiology Microbiology Results: Microbiology 06/20/23 17:14 Blood - Venous Blood Culture - Preliminary No growth after 48 hours. 06/20/23 17:12 Blood - Venous Blood Culture - Preliminary No growth after 48 hours. Assessment and Plan (1) Cellulitis of leg, right: Status: Acute Possible OM or fracture. Continue Zosyn and Vancomycin and if no OM then po Doxycycline and Augmentin for a week. Check MRI if CT doesnt show OM (patient was refusing). (2) Severe sepsis: Status: Acute
[2023-06-23 16:11] LABS: Glucose, Whole Blood 204 mg/dL (60-115)
--- NOTE | 2023-06-23 16:57 | HE.PHANOTE ---
[facility] PATIENTS LEVEL CAME BACK THIS EVENING AT 15. NEXT LEVEL 06/25/23 @1600. PREDICTED AUC 489. CONTINUE CURRENT DOSE
[2023-06-23] MEDS: Acetaminophen 325 MG TABLET 650 MG PO (17:38)
[2023-06-23 19:21] VITALS: BP 120/55; PULSE 82; RESP 16; TEMP 36.3; O2SAT 98
[2023-06-23 20:25] LABS: Glucose, Whole Blood 238 mg/dL (60-115)
[2023-06-24] MEDS: Piperacillin Sodium/Tazobactam 3.375 GM in 0.9 % Sodium Chloride 50 ML IV ×3 (00:33→13:40)
[2023-06-24] MEDS: Acetaminophen 325 MG TABLET 650 MG PO ×3 (00:41→13:35)
[2023-06-24] MEDS: oxyCODONE HCl Immed Release 5 MG TABLET PO ×3 (00:42→13:34)
[2023-06-24 03:32] VITALS: BP 133/69; PULSE 68; RESP 16; TEMP 36; O2SAT 97
[2023-06-24 05:32] LABS: Hematocrit 27.5 % (42.0-52.0); Hemoglobin 8.6 g/dl (14.0-18.0); Mean Corpuscular HGB Conc 31.3 g/dl (31.0-36.0); Mean Corpuscular Hemoglobin 24.9 pg (27.0-33.0); Mean Corpuscular Volume 79.7 fL (80.0-98.0); Mean Platelet Volume 8.5 fL (9.4-12.4); Platelet Count 264 X10*3/uL (160-400); Red Blood Count 3.45 X10*6/uL (4.60-5.80); Red Cell Distribution Width 17.6 % (11.0-16.0); White Blood Count 8.1 X10*3/uL (4.8-10.8)
[2023-06-24 05:45] LABS: Creatinine Clr Calc Pharmacy 98.3; Estimated Glomerular Filt Rate > 60
[2023-06-24] MEDS: vancomycin HCL 1,250 MG in 0.9 % Sodium Chloride 250 ML 166.67 MG IV (05:46)
[2023-06-24 06:59] VITALS: BP 132/60; PULSE 79; RESP 18; TEMP 36.6; O2SAT 98
[2023-06-24 07:14] LABS: Glucose, Whole Blood 123 mg/dL (60-115)
[2023-06-24] MEDS: 0.9 % Sodium Chloride Flush 3 ML SYRINGE IVFLUSH (07:35)
[2023-06-24] MEDS: Furosemide 40 MG TABLET PO (08:23)
[2023-06-24] MEDS: Atorvastatin Calcium 40 MG TABLET PO (08:23)
[2023-06-24] MEDS: Metoprolol Succinate ER 50 MG TAB.ER.24H PO (08:23)
[2023-06-24] MEDS: Aspirin Enteric Coated 81 MG TABLET.DR PO (08:23)
[2023-06-24] MEDS: Apixaban 5 MG TABLET PO (08:24)
[2023-06-24 11:08] LABS: Glucose, Whole Blood 166 mg/dL (60-115)
[2023-06-24] MEDS: Insulin Lispro 100 UNIT/ML 3 ML VIAL SUBCUT (12:18)
--- NOTE | 2023-06-24 14:12 | PM.DS ---
DS: Providers Provider Date of Service: 06/24/23 Date of admission: 06/20/23 23:14 Date of discharge: 06/24/23 Primary care physician: Crow Comer MD Consults: 06/20/23 20:45 Consult to General Surgery Routine [place] [facility] [place] [facility] Reason for consultation: necrotic R 5th toe ulcer Consult to Wound Care Routine Reason for consultation: R 5th toe ulcer 06/21/23 13:00 Consult to Orthopedics Routine Consulting Provider: Adonay Quinonez Reason for consultation: rt knee swelling r/o septic arthritis Has provider been notified: No 06/23/23 11:41 Consult to Infectious Diseases Routine [place]ing [place] [facility] [place] [facility] Reason for consultation: RLE cellulitis; fifth toe wound possible osteo Has provider been notified: No Attending physician on discharge: Kiran Tovar Discharging clinician: Amanda Webster DS: Diagnosis Discharge Diagnosis (1) Cellulitis of leg, right: Status: Acute (2) Severe sepsis: Status: Acute DS: Summary Hospital Course Hospital Course: From H&P on the day of admission 59-year-old male with history of uncontrolled insulin-dependent type 2 diabetes, hyperlipidemia, coronary artery disease s/p PCI 2018, paroxysmal atrial fibrillation s/p cardioversion and cardiac ablation anticoagulated with Eliquis, hypertension, obstructive sleep apnea, HFpEF presented to the ED earlier today the recommendation of his PCP for evaluation of a nonhealing ulcer of the right 5th toe. The patient reports that while ambulating about 17 days ago, he accidentally kicked the leg of a wood chair with the right small toe and sustained a laceration that did not require repair. However he did develop surrounding erythema and edema and he was prescribed Bactrim and Augmentin. However despite oral antibiotics, continue with ascending erythema, swelling, and pain. The toe took on a foul odor with black discoloration. He was seen again by his PCP today who recommended he come to the ED for further evaluation. His has been providing wound care and reports purulent drainage from the wound. He also states he has been having difficulty bearing weight on the right lower extremity. On arrival, patient iwth soft BP 90/46 with improvement to 153/97 following 1L IVF. Pt did develop mild tachycardia in the 90s. Vitals otherwise stable. There is a leukocytosis of 13.8. Microcytic anemia with H/H 11.0/35.1%, MCV 79.1. Creat 1.98, baseline 0.90 (CDH). BUN 44. Sodium 130, potassium 5.1, electrolytes otherwise normal. CRP 12.38, ESR 85. X-ray of the right knee shows degenerative changes but no acute osseous abnormality. X-ray of the foot negative for any acute osteomyelitis. Arterial Doppler right lower extremity shows mild atherosclerotic disease but no significant stenosis. In the ED, has been treated with empiric Zosyn and vancomycin and has been given 1 L IV NS. Acute RLE cellulitis with severe sepsis Treated with IV vancomycin and Zosyn. sepsis resolved, blood cultures have remained negative. x-ray knee and foot negative for osteomyelitis but inflammatory markers elevated, pt has declined MRI therefore CT scan was done to eval for osteomyelitis. The CT scan did not show evidence of osteo. It was explained to the patient that CT is not the best test to evaluate for bne involvement but he still does not want to proceed with MRI at this time. He was seen by general surgery and did not feel that any surgical intervention was required at this time. will need outpatient folow up. due to ongoing swelling and knee pain, he was seen by the Orthopedic surgery team, he had CT of right knee likely partial quad tendon tear despite negative CT. CT showed no evidence of septic arthritis, no acute fracture dislocation, showed tricompartmental osteoarthritis and small joint effusion. He was seen by ID who recommended one week of doxy and augmentin. Right knee pain likely partial tear of quadriceps tendon as above seen by ortho - no surgical intervention required at this time. WBAT with walker acute kidney injury likely prerenal resolved with IV fluids Acute microcytic anemia denies bleeding, likely in setting of acute infection, poor appetite, iron studies not consistent with iron deficiency anemia. Hematocrit above transfusion threshold. recommend outpatient follow up insulin-dependent type 2 diabetes low am blood sugars. hemoglobin A1c 7.2, on Tresiba 150 units subQ daily and Farxiga at home. received lantus initially during inpatient stay, but was stopped for low am sugars. was treated with insulin sliding scale. can resume Farxiga on discharge. monitor blood sugar closely Time Attestation Discharge coordination time: Greater than 30 minutes Quality: Safe Use of Opioids Does Pt have an Active Cancer Diagnosis on the Problem List?: No Quality: Stroke Does the patient have a stroke diagnosis?: No Physical Exam Vital Signs: Vital Signs: Last Vital Signs Temp 98 F 06/24/23 06:59 Pulse 79 06/24/23 06:59 Resp 18 06/24/23 06:59 BP 132/60 06/24/23 06:59 Pulse Ox 98 06/24/23 06:59 O2 Del Method Room Air 06/24/23 06:59 BMI result Body Mass Index 35.5 Const: General: cooperative, comfortable, no acute distress, alert and awake Nutritional Appearance: overweight Orientation/consciousness: patient oriented x3 Resp: Effort & Inspection: normal respiratory effort, able to speak in complete sentences, no respiratory distress and no use of accessory muscles Cardio: Rate: regular rate GI: Inspection: No distended Palpation (GI): Soft to palpation and nontender Skin: Other: right fifth toe with shallow ulcer surrounding erythema top of foot, edema, pain and ROM improving Neuro: General: patient oriented x3, moves all extremities and CN's II-XI intact bilaterally Extrem: Other: RLE swelling DS: Data Data Completed and Pending Labs on day of discharge: Laboratory Results - last 24 hr 06/23/23 06/23/23 06/23/23 16:00 16:18 19:22 WBC RBC Hgb Hct MCV MCH MCHC RDW Plt Count MPV Absolute Nucleated RBC Nucleated RBC % (auto) Creatinine Estim Creat Clear Calc Estimated GFR POC Glucose 204 H 238 H Random Vancomycin 15.0 06/24/23 06/24/23 06/24/23 05:04 07:09 11:04 WBC 8.1 RBC 3.45 L Hgb 8.6 L Hct 27.5 L MCV 79.7 L MCH 24.9 L MCHC 31.3 RDW 17.6 H Plt Count 264 MPV 8.5 L Absolute Nucleated RBC 0.000 Nucleated RBC % (auto) 0.0 Creatinine 0.93 Estim Creat Clear Calc 98.3 Estimated GFR > 60 POC Glucose 123 H 166 H Random Vancomycin Preliminary micro results at discharge 06/20/23 17:14 Blood Culture - Preliminary Blood - Venous No growth after 48 hours. 06/20/23 17:12 Blood Culture - Preliminary Blood - Venous No growth after 48 hours. Discharge Plan Discharge Anticipated Discharge Date/Time: 06/24/23 16:00 Patient Disposition: er SNF Discharge Diagnosis: sepsis due to RLE cellulitis and diabetic foot wound Referrals: Aidan Smiley MD [Physician] - 1 Week Crow Comer MD [Primary Care Provider] - 1 Week Discharge Medications: New nystatin-triamcinolone 100,000-0.1 unit/g-% Cream 1 appl topical BID Qty: 15 0RF Protocol: Apply to: Apply to: right foot -affected area amoxicillin-pot clavulanate 875-125 mg tablet 1 tab PO Q12H 7 Days Qty: 14 0RF doxycycline monohydrate 100 mg tablet 100 mg PO BID 7 Days Qty: 14 0RF Continued furosemide 40 mg tablet 40 mg PO DAILY metoprolol succinate 50 mg tablet extended release 24 hr 50 mg PO DAILY aspirin 81 mg tablet,delayed release (DR/EC) 81 mg PO DAILY rosuvastatin 10 mg tablet 10 mg PO DAILY Eliquis 5 mg tablet 5 mg PO BID Farxiga 5 mg tablet 5 mg PO DAILY acetaminophen 500 mg Tablet 1,000 mg PO TID PRN (Reason: Pain (Scale Score 1-3)) Held losartan 50 mg tablet 50 mg PO DAILY Hold Instructions: bp has been stable off losartan. follow bp and resume as indicated insulin degludec [Tresiba FlexTouch U-200] 200 unit/mL (3 mL) insulin pen 150 unit subcut DAILY Hold Instructions: hold for now, did not receive in hospital. monitor blood sugars and resume as indicated Discontinued sulfamethoxazole-trimethoprim 800-160 mg tablet 1 tab PO BID ibuprofen 600 mg tablet 600 mg PO Q6H PRN (Reason: Pain (Scale Score 1-3)) amoxicillin-pot clavulanate 875-125 mg tablet 1 tab PO BID Discharge Orders: Discharge Order (Routine); Ordered 06/24/23 Ordered By: Amanda Webster Activity on Discharge: As tolerated Stand Alone Forms: Patient Portal Discharge page Care Plan Goals: see below Health Concerns: cellulitis and diabetic foot wound of right leg Plan of Treatment: complete course of antibiotics - 7 days of doxycycline and augmentin bone involvement could not definitively be excluded as you declined MRI. recommend close monitoring of wound and local wound care - Right 5th Toe - Cleanse and irrigate with NS, Pat dry.?Apply barrier to periwound, cover wound bed with Durafiber AGl.?Cover with dry gauze and wrap dressing.?Change Daily possible fungal component can use antifungal cream twice daily for one week/assess for improvement call to schedule follow up appointment with general surgery to monitor wound healing Assessment: see discharge summary
[2023-06-24] MEDS: Nystatin/Triamcinolone Cream 15 GM TUBE 1 APPL TOPICAL (14:55)
[2023-06-24 15:00] VITALS: BP 121/62; PULSE 74; RESP 18; TEMP 36.2; O2SAT 97
--- NOTE | 2023-06-24 15:25 | PC.NURSE ---
Pt for discharge to [facility] nursing report called to isela pratt . pt to be transported via ambulance [facility] 1600
== END 2023-06-24 16:25 | disposition skilled nursing facility (03) | DRG 872 ==
LOC: HO.ED 19:29 → HO.EDOVER 23:16 → HO.S3 23:32
PROVIDERS: Hospitalist; Nurse Practitioner Family; Admitting Provider Physician Assistant; Emergency Provider Emergency Medicine; PCP Thoracic Surgery (Cardiothoracic Vascular Surgery); Visit Provider Physician Assistant Medical
DX: A41.9 Sepsis, unspecified organism (principal); N17.9 Acute kidney failure, unspecified; I50.32 Chronic diastolic (congestive) heart failure; E87.1 Hypo-osmolality and hyponatremia; L03.115 Cellulitis of right lower limb; I48.0 Paroxysmal atrial fibrillation; E11.621 Type 2 diabetes mellitus with foot ulcer; L97.519 Non-pressure chronic ulcer of other part of right foot with unspecified severity; D64.9 Anemia, unspecified; E78.5 Hyperlipidemia, unspecified; S76.111A Strain of right quadriceps muscle, fascia and tendon, initial encounter; X58.XXXA Exposure to other specified factors, initial encounter; R65.20 Severe sepsis without septic shock; E66.8 Other obesity; Z68.35 Body mass index [BMI] 35.0-35.9, adult; Z95.5 Presence of coronary angioplasty implant and graft; I11.0 Hypertensive heart disease with heart failure; I25.10 Atherosclerotic heart disease of native coronary artery without angina pectoris; G47.33 Obstructive sleep apnea (adult) (pediatric); Z87.891 Personal history of nicotine dependence; Z79.4 Long term (current) use of insulin; Z79.01 Long term (current) use of anticoagulants; Z79.82 Long term (current) use of aspirin; Z79.899 Other long term (current) drug therapy
CPT/HCPCS: 36415; 73562; 73620; 73700; 73701; 80048; 80076; 80202; 82565; 82728; 82947; 83036; 83540; 83605; 85025; 85027; 85652; 86140; 87040; 93926; 97116; 97162; 99285; J1170; J2270; J2543; J3370; J3371; Q9967

== ENCOUNTER → 2023-06-20 23:14 | Outpatient (BNV) | payer MEDICARE, OTHER, SELFPAY | PROVIDERS: Admitting Provider Physician Assistant; Emergency Provider Emergency Medicine; PCP Thoracic Surgery (Cardiothoracic Vascular Surgery); Visit Provider Internal Medicine | DX: L03.115 Cellulitis of right lower limb (principal); A41.9 Sepsis, unspecified organism; R65.20 Severe sepsis without septic shock | CPT/HCPCS: 99222 ==

== ENCOUNTER → 2023-06-20 23:14 | Outpatient (BNV) | payer MEDICARE, OTHER, SELFPAY | PROVIDERS: Admitting Provider Physician Assistant; Emergency Provider Emergency Medicine; PCP Thoracic Surgery (Cardiothoracic Vascular Surgery); Visit Provider Surgery | DX: L03.115 Cellulitis of right lower limb (principal) | CPT/HCPCS: 99222 ==

== ENCOUNTER → 2023-06-20 23:14 | Outpatient (BNV) | payer MEDICARE, OTHER, SELFPAY | PROVIDERS: Admitting Provider Physician Assistant; Emergency Provider Emergency Medicine; PCP Thoracic Surgery (Cardiothoracic Vascular Surgery); Visit Provider Physician Assistant | DX: L03.115 Cellulitis of right lower limb (principal); M25.561 Pain in right knee; S76.109A Unspecified injury of unspecified quadriceps muscle, fascia and tendon, initial encounter; M17.11 Unilateral primary osteoarthritis, right knee | CPT/HCPCS: 99222; 99499 ==

== ENCOUNTER → 2023-06-20 23:14 | Outpatient (BNV) | payer MEDICARE, OTHER, SELFPAY | PROVIDERS: Admitting Provider Physician Assistant; Emergency Provider Emergency Medicine; PCP Thoracic Surgery (Cardiothoracic Vascular Surgery); Visit Provider Physician Assistant | DX: S76.109A Unspecified injury of unspecified quadriceps muscle, fascia and tendon, initial encounter (principal); E87.1 Hypo-osmolality and hyponatremia; L03.115 Cellulitis of right lower limb; E11.69 Type 2 diabetes mellitus with other specified complication; E78.5 Hyperlipidemia, unspecified | CPT/HCPCS: 99223; 99232; 99238 ==